=== PATIENT | female | born 1950 | race Caucasian/White ===

== ENCOUNTER 2016-04-11 10:19 | Emergency (ER) | payer MEDICARE ==
[2016-01-30 10:49] VITALS: BMI 22.7
[~2016-04-11 10:19] MED LIST: HALDOL5 MG/ML IM; MEDROL DOSE PACK4 MG PO; MOBIC7.5 MG PO; MULTIPLE VITAMI1 TA1 PO; POTASSIUM CHLO10 ME1 PO; PREDNISONE20 MG PO; PROTONIX40 MG PO; ROBAXIN-750750 MG PO; ULTRAM50 MG PO
[2016-04-11 10:59] LABS: BASOPHILS 0.5 % (0.0-2.0); EOSINOPHILS 1.4 % (0-7); HEMATOCRIT 39.2 % (36.0-48.0); HEMOGLOBIN 12.4 g/dL (12-16); IMMATURE GRANULOCYTES 0.2 % (0-5); LYMPHOCYTES 18.9 % (15-50); MCH 27.4 pg (26.0-34.0); MCHC 31.6 g/dL (31.0-37.0); MCV 86.5 fL (80.0-100.0); MEAN PLATELET VOLUME 9.3 fL (7.4-10.4); MONOCYTES 5.9 % (2-11); NEUTROPHILS 73.1 % (40-80); RBC 4.53 10x6/uL (4.00-5.40); RDW 16.6 % (11.5-14.5); WBC 5.6 10x3/uL (4.8-10.8)
[2016-04-11 11:04] LABS: PLATELET COUNT 191 10x3/uL (130-400)
[2016-04-11 11:17] LABS: APTT 32.2 SECONDS (22.8-39.4); INR 1.06 (0.85-1.17); PROTIME 13.6 SECONDS (11.6-15.0)
[2016-04-11 11:26] LABS: ALBUMIN 3.8 g/dL (3.4-5.0); ALKALINE PHOSPHATASE 461 U/L (46-116); ALT (SGPT) 28 U/L (10-68); BILIRUBIN - TOTAL 0.25 mg/dL (0.2-1.3); CALC OSMOLALITY 278 mosm/kg (275-300); CALCIUM 8.8 mg/dL (8.5-10.1); CARBON DIOXIDE 28.4 mmol/L (21.0-32.0); CHLORIDE - SERUM 104 mmol/L (98-107); CREATININE - SERUM 0.6 mg/dL (0.6-1.3); GLUCOSE 93 mg/dL (74-106); POTASSIUM - SERUM 4.6 mmol/L (3.5-5.1); PROTEIN - SERUM 7.4 g/dL (6.4-8.2); SODIUM 139 mmol/L (136-145); UREA NITROGEN 15 mg/dL (7-18); eGFR NON AFRICAN AMERICAN > 90 mL/min (90-120)
== END 2016-04-11 14:00 | disposition home or self-care (01) ==
LOC: D.ER 10:19
PROVIDERS: Nurse Practitioner Family
DX: C76.51 Malignant neoplasm of right lower limb (principal); C79.51 Secondary malignant neoplasm of bone

== ENCOUNTER 2016-07-30 06:50 | Day surgery (SDC) | payer MEDICARE ==
[~2016-07-30] VITALS: Ht 157.5 cm; Wt 54.4 kg
--- NOTE | ~2016-07-30 | OP ---
PATIENT NAME: JIMBO WINN MEDICAL RECORD: [id number] :52 LOCATION:D.OPS ADMISSION DATE: SURGEON: RENAN VILLEGAS MD DATE OF OPERATION: 07/30/2016 PREOPERATIVE DIAGNOSES: 1. Metastatic breast cancer. 2. Bone cancer, metastatic from the breast. POSTOPERATIVE DIAGNOSES: 1. Metastatic breast cancer. 2. Bone cancer, metastatic from the breast. PROCEDURE: Left subclavian vein PowerPort placement with fluoroscopic interpretation. SURGEON: Renan Villegas MD REPORT OF PROCEDURE: The patient's left chest was prepped and draped in sterile fashion. A needle was used to cannulate the left subclavian vein. The guidewire was advanced with ease. Fluoro was used to note that the wire was in good position in the venous system. A subcutaneous pouch was then formed on the left superior and lateral chest overlying the pectoral fascia. The port was then sutured to the pectoral fascia using interrupted 2-0 Prolenes and the catheter was tunneled between this pouch and the wire exit site. The catheter was then cut with a beveled tip at 25 cm. The dilator trocar device was placed over the wire and the wire and dilator were removed. The catheter tip was advanced through the trocar with ease and the trocar was removed. The catheter resting in good position at the right atrial superior vena caval junction. The catheter aspirated nonpulsatile dark blood and flushed easily with heparinized saline. We then irrigated out the wound and then reapproximated the subcutaneous tissues with interrupted 3-0 Vicryls. The skin was then closed with running subcutaneous 5-0 Monocryl and dressed appropriately. A total of 5 mL of 0.25% Marcaine with epinephrine was infused into the surrounding tissues. COMPLICATIONS: None. CONDITION: Stable. ANESTHESIA: General endotracheal and local. BLOOD LOSS: Minimal. TRANSINT:[id number] Voice Confirmation ID: [id number] DOCUMENT ID: [id number] RENAN VILLEGAS MD CC: OLIVIA RAAYA MD and KIERSTEN HERNANDEZ MD [id number] DICTATION DATE: 07/30/16 0937 GALLERY OR MUSEUM CURATOR: 07/30/162008 [facility] 07/30/16 [place] [address]
[~2016-07-30 06:50] MED LIST changes: +CYCLOBENZAPRINE10 MG PO; +FEMARA2.5 MG PO; +IBRANCE PO
[2016-07-30] MEDS ORDERED: PERCOCET 5-3251 TAB PO ×2 (07:31→09:32)
[2016-07-30 07:33] VITALS: BP 127/91; Ht 157.5 cm; Wt 54.4 kg
[2016-07-30 07:50] LABS: BASOPHILS 1.8 % (0-2); EOSINOPHILS 6.5 % (0-7); HEMATOCRIT 37.5 % (36.0-48.0); HEMOGLOBIN 12.3 g/dL (12-16); LYMPHOCYTES 46.9 % (15-50); MCH 33.5 pg (26.0-34.0); MCHC 32.8 g/dL (31.0-37.0); MCV 102.2 fL (80.0-100.0); MEAN PLATELET VOLUME 9.3 fL (7.4-10.4); MONOCYTES 4.5 % (2-11); NEUTROPHILS 40.3 % (40-80); RBC 3.67 10x6/uL (4.00-5.40); RDW 20.7 % (11.5-14.5)
[2016-07-30 07:54] LABS: PLATELET COUNT 326 10x3/uL (130-400)
[2016-07-30 07:58] LABS: APTT 29.7 SECONDS (22.8-39.4); INR 0.97 (0.85-1.17); PROTIME 12.7 SECONDS (11.6-15.0)
--- NOTE | 2016-07-30 11:44 | NUR ---
1144--IV DC'D, PT UP TO DRESS. KAMLA RN
--- NOTE | 2016-07-30 16:38 | NUR ---
1205--DISCHARGE INSTRUCTIONS GIVEN, PT VERBALIZES UNDERSTANDING. PT OFF UNIT VIA NAVJOT. KAMLA CARLSON
== END 2016-07-30 12:05 | disposition home or self-care (01) ==
LOC: D.OPS 06:50 → D.PAN 07:30 → D.OPS 12:05
PROVIDERS: Anesthesiology
DX: C50.919 Malignant neoplasm of unspecified site of unspecified female breast (principal); C79.51 Secondary malignant neoplasm of bone; Z01.812 Encounter for preprocedural laboratory examination

== ENCOUNTER → 2016-08-05 09:54 | Outpatient (CLI) | payer MEDICARE ==
[2016-07-30 07:33] VITALS: BMI 22.0
[~2016-08-05 09:54] MED LIST changes: +PERCOCET 5-3251 TAB PO
== END | disposition home or self-care (01) ==
LOC: D.NM 07-09 09:45
DX: C50.912 Malignant neoplasm of unspecified site of left female breast (principal)

== ENCOUNTER → 2017-05-11 10:49 | Outpatient (CLI) | payer OTHER, MEDICARE ==
[2016-07-30 07:33] VITALS: BMI 22.0
== END | disposition home or self-care (01) ==
LOC: D.NM 04-28 08:15
DX: Z85.3 Personal history of malignant neoplasm of breast (principal)

== ENCOUNTER 2017-10-14 17:58 | Emergency (ER) | payer OTHER, MEDICARE ==
[~2017-10-14] VITALS: Ht 157.5 cm; Wt 55.0 kg
[2017-10-14 18:12] VITALS: Ht 157.5 cm; Wt 55.0 kg
[2017-10-14] MEDS ORDERED: XGEVA (18:15)
[2017-10-14 18:40] LABS: BASOPHILS 0.6 % (0-2); EOSINOPHILS 4.6 % (0-7); HEMATOCRIT 39.4 % (36.0-48.0); HEMOGLOBIN 12.7 g/dL (12-16); IMMATURE GRANULOCYTES 0.1 % (0-5); LYMPHOCYTES 24.9 % (15-50); MCH 29.4 pg (26.0-34.0); MCHC 32.2 g/dL (31.0-37.0); MCV 91.2 fL (80.0-100.0); MEAN PLATELET VOLUME 9.4 fL (7.4-10.4); MONOCYTES 5.3 % (2-11); NEUTROPHILS 64.5 % (40-80); RBC 4.32 10x6/uL (4.00-5.40); RDW 15.3 % (11.5-14.5); WBC 8.2 10x3/uL (4.8-10.8)
[2017-10-14 18:43] LABS: PLATELET COUNT 220 10x3/uL (130-400)
[2017-10-14 18:58] LABS: APPEARANCE CLEAR (CLEAR); BACTERIA FEW /hpf (NONE SEEN); BILIRUBIN NEGATIVE (NEGATIVE); COLOR YELLOW (YELLOW); GLUCOSE NEGATIVE (NEGATIVE); KETONE NEGATIVE (NEGATIVE); NITRITE NEGATIVE (NEGATIVE); PROTEIN NEGATIVE (NEGATIVE); UROBILINOGEN NORMAL (NORMAL); WHITE CELLS - URINE 0-5 /hpf (0-5)
[2017-10-14 18:58] LABS: ALBUMIN 3.7 g/dL (3.4-5.0); ANION GAP 12.6 mmol/L (8-16); BILIRUBIN - TOTAL 0.45 mg/dL (0.2-1.3); CALCIUM 8.5 mg/dL (8.5-10.1); CARBON DIOXIDE 24.8 mmol/L (21.0-32.0); CREATININE - SERUM 0.9 mg/dL (0.6-1.3); POTASSIUM - SERUM 4.4 mmol/L (3.5-5.1); PROTEIN - SERUM 7.1 g/dL (6.4-8.2)
[2017-10-14 23:34] VITALS: BP 122/86
== END 2017-10-14 23:34 | disposition home or self-care (01) ==
LOC: D.ER 17:58
PROVIDERS: Family Medicine
DX: M79.661 Pain in right lower leg (principal); R60.9 Edema, unspecified; Z87.311 Personal history of (healed) other pathological fracture; C50.919 Malignant neoplasm of unspecified site of unspecified female breast; C79.51 Secondary malignant neoplasm of bone

== ENCOUNTER → 2017-10-26 13:38 | Outpatient (CLI) | payer OTHER, MEDICARE ==
[2017-10-14 18:12] VITALS: BMI 22.2
[~2017-10-26 13:38] MED LIST changes: +XGEVA
== END | disposition home or self-care (01) ==
LOC: D.CT 13:38
DX: C50.912 Malignant neoplasm of unspecified site of left female breast (principal); C79.51 Secondary malignant neoplasm of bone

== ENCOUNTER 2017-11-09 15:55 | Inpatient (IN) | payer OTHER, MEDICAID ==
[~2017-11-09] VITALS: Ht 157.5 cm; Wt 55.0 kg
[2017-11-09 16:35] LABS: BASOPHILS 0.4 % (0-2); EOSINOPHILS 2.9 % (0-7); HEMATOCRIT 41.3 % (36.0-48.0); HEMOGLOBIN 13.7 g/dL (12-16); IMMATURE GRANULOCYTES 0.1 % (0-5); LYMPHOCYTES 17.9 % (15-50); MCH 29.5 pg (26.0-34.0); MCHC 33.2 g/dL (31.0-37.0); MEAN PLATELET VOLUME 9.5 fL (7.4-10.4); MONOCYTES 6.4 % (2-11); NEUTROPHILS 72.3 % (40-80); PLATELET COUNT 232 10x3/uL (130-400); RBC 4.64 10x6/uL (4.00-5.40); RDW 14.9 % (11.5-14.5); WBC 7.2 10x3/uL (4.8-10.8)
[2017-11-09 16:53] LABS: ALBUMIN 3.4 g/dL (3.4-5.0); ALKALINE PHOSPHATASE 82 U/L (46-116); ALT (SGPT) 32 U/L (10-68); BILIRUBIN - TOTAL 0.52 mg/dL (0.2-1.3); CALC OSMOLALITY 285 mosm/kg (275-300); CALCIUM 8.3 mg/dL (8.5-10.1); CARBON DIOXIDE 25.4 mmol/L (21.0-32.0); CHLORIDE - SERUM 106 mmol/L (98-107); GLUCOSE 135 mg/dL (74-106); POTASSIUM - SERUM 4.1 mmol/L (3.5-5.1); PROTEIN - SERUM 6.9 g/dL (6.4-8.2); SODIUM 139 mmol/L (136-145); UREA NITROGEN 29 mg/dL (7-18); eGFR NON AFRICAN AMERICAN 59 mL/min (90-120)
[2017-11-09 16:57] LABS: APTT 30.7 SECONDS (22.8-39.4); INR 1.28 (0.85-1.17); PROTIME 15.5 SECONDS (11.6-15.0)
[2017-11-09 17:04] LABS: CKMB 2.5 U/L (0.0-3.6); CREATINE KINASE 107 UL (21-215); PRO BNP 10500 pg/mL (0-125); TROPONIN-I < 0.017 ng/mL (0.000-0.060)
[2017-11-09] MEDS ORDERED: PROLIA INJ 660 MG/M1 IJ (17:22)
[2017-11-09] MEDS ORDERED: ALDACTONE25 MG PO (17:23)
[2017-11-09 17:31] VITALS: BP 119/81
[2017-11-09 17:49] VITALS: BP 116/83
[2017-11-09 22:05] VITALS: BP 118/76
[2017-11-10] VITALS (7 sets, daily range): BP systolic 100–118; BP diastolic 61–76; BMI 24.5
[2017-11-10 15:02] LABS: MAGNESIUM - SERUM 2.2 mg/dL (1.8-2.4); T4 THYROXIN - FREE 1.44 ng/dL (0.76-1.46); THYROID STIMULATING HORMONE 2.38 uIU/mL (0.36-3.74)
[2017-11-11] VITALS (16 sets, daily range): BP systolic 85–144; BP diastolic 30–104; Ht 157.5 cm; Wt 55.0 kg
[2017-11-11 08:42] LABS: BASOPHILS 0.1 % (0-2); EOSINOPHILS 0.1 % (0-7); HEMATOCRIT 45.4 % (36.0-48.0); HEMOGLOBIN 14.4 g/dL (12-16); IMMATURE GRANULOCYTES 0.4 % (0-5); LYMPHOCYTES 13.7 % (15-50); MCH 29.1 pg (26.0-34.0); MCHC 31.7 g/dL (31.0-37.0); MEAN PLATELET VOLUME 9.9 fL (7.4-10.4); MONOCYTES 10.2 % (2-11); NEUTROPHILS 75.5 % (40-80); RBC 4.95 10x6/uL (4.00-5.40); RDW 15.3 % (11.5-14.5)
[2017-11-11 08:50] LABS: WBC 9.3 10x3/uL (4.8-10.8)
[2017-11-11 08:51] LABS: MCV 91.7 fL (80.0-100.0); PLATELET COUNT 133 10x3/uL (130-400)
[2017-11-11 09:14] LABS: CHLORIDE - SERUM 98 mmol/L (98-107); CKMB 5.4 U/L (0.0-3.6); SODIUM 130 mmol/L (136-145); UREA NITROGEN 34 mg/dL (7-18)
[2017-11-11 09:28] LABS: CALC OSMOLALITY 266 mosm/kg (275-300); CARBON DIOXIDE 12.7 mmol/L (21.0-32.0); CREATINE KINASE 307 UL (21-215); CREATININE - SERUM 2.3 mg/dL (0.6-1.3); eGFR NON AFRICAN AMERICAN 22 mL/min (90-120)
[2017-11-11 09:30] LABS: GLUCOSE 55 mg/dL (74-106); POTASSIUM - SERUM 7.2 mmol/L (3.5-5.1); TROPONIN-I 0.133 ng/mL (0.000-0.060)
[2017-11-12] VITALS (24 sets, daily range): BP systolic 104–159; BP diastolic 55–99
[2017-11-12 04:57] LABS: BASOPHILS 0 % (0-2); EOSINOPHILS 0 % (0-7); HEMATOCRIT 39.6 % (36.0-48.0); HEMOGLOBIN 13.3 g/dL (12-16); IMMATURE GRANULOCYTES 0.5 % (0-5); LYMPHOCYTES 5.1 % (15-50); MCHC 33.6 g/dL (31.0-37.0); MEAN PLATELET VOLUME 10.3 fL (7.4-10.4); MONOCYTES 4.5 % (2-11); NEUTROPHILS 89.9 % (40-80); PLATELET COUNT 117 10x3/uL (130-400); RBC 4.59 10x6/uL (4.00-5.40); RDW 14.4 % (11.5-14.5)
[2017-11-12 05:01] LABS: MCV 86.3 fL (80.0-100.0); WBC 19.7 10x3/uL (4.8-10.8)
[2017-11-12 05:03] LABS: CALCIUM 7.5 mg/dL (8.5-10.1); CREATININE - SERUM 1.7 mg/dL (0.6-1.3)
[2017-11-12 05:04] LABS: ANION GAP 11.9 mmol/L (8-16); CARBON DIOXIDE 29.7 mmol/L (21.0-32.0); POTASSIUM - SERUM 2.6 mmol/L (3.5-5.1)
[2017-11-13] VITALS (14 sets, daily range): BP systolic 116–167; BP diastolic 58–87
[2017-11-13 06:18] LABS: ANION GAP 11.1 mmol/L (8-16); CALCIUM 7.8 mg/dL (8.5-10.1); CARBON DIOXIDE 31.7 mmol/L (21.0-32.0); POTASSIUM - SERUM 3.8 mmol/L (3.5-5.1)
[2017-11-13 06:24] LABS: BASOPHILS 0.2 % (0-2); EOSINOPHILS 0.9 % (0-7); HEMATOCRIT 43.5 % (36.0-48.0); HEMOGLOBIN 14.7 g/dL (12-16); IMMATURE GRANULOCYTES 0.3 % (0-5); MCH 29.3 pg (26.0-34.0); MCHC 33.8 g/dL (31.0-37.0); MCV 86.8 fL (80.0-100.0); MEAN PLATELET VOLUME 9.7 fL (7.4-10.4); MONOCYTES 5.4 % (2-11); NEUTROPHILS 80.2 % (40-80); PLATELET COUNT 100 10x3/uL (130-400); RBC 5.01 10x6/uL (4.00-5.40); WBC 11.1 10x3/uL (4.8-10.8)
[2017-11-13 06:26] LABS: CREATININE - SERUM 1.2 mg/dL (0.6-1.3)
[2017-11-14 04:03] LABS: BASOPHILS 0.2 % (0-2); EOSINOPHILS 1.3 % (0-7); HEMATOCRIT 46.8 % (36.0-48.0); HEMOGLOBIN 15.8 g/dL (12-16); IMMATURE GRANULOCYTES 0.2 % (0-5); LYMPHOCYTES 22.2 % (15-50); MCH 29.3 pg (26.0-34.0); MCHC 33.8 g/dL (31.0-37.0); MCV 86.8 fL (80.0-100.0); MEAN PLATELET VOLUME 9.9 fL (7.4-10.4); NEUTROPHILS 68.1 % (40-80); PLATELET COUNT 117 10x3/uL (130-400); RBC 5.39 10x6/uL (4.00-5.40); RDW 14.7 % (11.5-14.5); WBC 9.9 10x3/uL (4.8-10.8)
[2017-11-14 04:13] LABS: ANION GAP 10.1 mmol/L (8-16); CALCIUM 8.3 mg/dL (8.5-10.1); CARBON DIOXIDE 32.9 mmol/L (21.0-32.0)
[2017-11-14 07:00] VITALS: BP 110/68
[2017-11-14 11:01] VITALS: BP 147/82
[2017-11-14 12:45] VITALS: BP 147/91
[2017-11-14 15:20] VITALS: BP 100/65
[2017-11-14 22:06] VITALS: BP 97/52
[2017-11-15 00:47] VITALS: BP 125/71
[2017-11-15 05:23] VITALS: BP 119/74
[2017-11-15 06:33] LABS: ANION GAP 13.1 mmol/L (8-16); CALCIUM 8.4 mg/dL (8.5-10.1); CARBON DIOXIDE 30.6 mmol/L (21.0-32.0); CREATININE - SERUM 0.9 mg/dL (0.6-1.3); POTASSIUM - SERUM 3.7 mmol/L (3.5-5.1)
[2017-11-15 06:38] LABS: BASOPHILS 0.6 % (0-2); EOSINOPHILS 8.2 % (0-7); HEMATOCRIT 48.2 % (36.0-48.0); HEMOGLOBIN 16.1 g/dL (12-16); IMMATURE GRANULOCYTES 0.2 % (0-5); LYMPHOCYTES 25.4 % (15-50); MCH 29.1 pg (26.0-34.0); MCHC 33.4 g/dL (31.0-37.0); MEAN PLATELET VOLUME 10.9 fL (7.4-10.4); MONOCYTES 10.6 % (2-11); RBC 5.54 10x6/uL (4.00-5.40); RDW 14.7 % (11.5-14.5); WBC 9.8 10x3/uL (4.8-10.8)
[2017-11-15 06:43] LABS: PLATELET COUNT 147 10x3/uL (130-400)
[2017-11-15 08:23] VITALS: BP 122/80
[2017-11-15 12:00] VITALS: BP 116/73
[2017-11-15 15:54] VITALS: BP 119/70
[2017-11-15 22:50] VITALS: BP 100/66
[2017-11-16 01:58] VITALS: BP 110/66
[2017-11-16 05:09] LABS: BASOPHILS 0.4 % (0-2); EOSINOPHILS 6.2 % (0-7); HEMATOCRIT 44.8 % (36.0-48.0); IMMATURE GRANULOCYTES 0.4 % (0-5); LYMPHOCYTES 30.6 % (15-50); MCH 29.1 pg (26.0-34.0); MCHC 33.5 g/dL (31.0-37.0); MEAN PLATELET VOLUME 10.1 fL (7.4-10.4); MONOCYTES 11.3 % (2-11); NEUTROPHILS 51.1 % (40-80); PLATELET COUNT 134 10x3/uL (130-400); RBC 5.15 10x6/uL (4.00-5.40); RDW 14.6 % (11.5-14.5); WBC 9.9 10x3/uL (4.8-10.8)
[2017-11-16 05:53] LABS: ANION GAP 14.4 mmol/L (8-16); BILIRUBIN - TOTAL 0.69 mg/dL (0.2-1.3); CALCIUM 8.9 mg/dL (8.5-10.1); CARBON DIOXIDE 29.8 mmol/L (21.0-32.0); POTASSIUM - SERUM 3.2 mmol/L (3.5-5.1); PROTEIN - SERUM 6.5 g/dL (6.4-8.2)
[2017-11-16 05:54] LABS: CREATININE - SERUM 1.3 mg/dL (0.6-1.3)
[2017-11-16 06:15] VITALS: BP 121/56
[2017-11-16 09:39] VITALS: BP 116/70
[2017-11-16 12:34] VITALS: BP 129/87
[2017-11-16 16:12] VITALS: BP 113/78
[2017-11-16 20:00] VITALS: BP 121/95
[2017-11-17 04:00] VITALS: BP 120/90
[2017-11-17 09:17] VITALS: BP 143/89
[2017-11-17 11:33] LABS: BASOPHILS 0.3 % (0-2); EOSINOPHILS 2.2 % (0-7); HEMATOCRIT 43.1 % (36.0-48.0); HEMOGLOBIN 14.6 g/dL (12-16); IMMATURE GRANULOCYTES 0.5 % (0-5); LYMPHOCYTES 23.6 % (15-50); MCH 29.2 pg (26.0-34.0); MCHC 33.9 g/dL (31.0-37.0); MCV 86.2 fL (80.0-100.0); MEAN PLATELET VOLUME 9.9 fL (7.4-10.4); MONOCYTES 13.8 % (2-11); NEUTROPHILS 59.6 % (40-80); PLATELET COUNT 141 10x3/uL (130-400); RDW 14.8 % (11.5-14.5); WBC 11.1 10x3/uL (4.8-10.8)
[2017-11-17 11:38] VITALS: BP 115/76
[2017-11-17 11:56] LABS: ALBUMIN 3.1 g/dL (3.4-5.0); ANION GAP 8.6 mmol/L (8-16); BILIRUBIN - TOTAL 0.64 mg/dL (0.2-1.3); CALCIUM 9.1 mg/dL (8.5-10.1); CARBON DIOXIDE 31.7 mmol/L (21.0-32.0); CREATININE - SERUM 1.1 mg/dL (0.6-1.3); POTASSIUM - SERUM 4.3 mmol/L (3.5-5.1)
[2017-11-17] MEDS ORDERED: LISINOPRIL2.5 MG PO (13:55)
[2017-11-17] MEDS ORDERED: COREG6.25 MG PO (13:55)
[2017-11-17] MEDS ORDERED: CARDIZEM CD180 MG PO (13:56)
[2017-11-17] MEDS ORDERED: FLORAJEN3 CAPS460 MG PO (13:57)
[2017-11-17] MEDS ORDERED: MIRALAX17 GM PO (14:01)
[2017-11-17] MEDS ORDERED: DULCOLAX5 MG PO (14:01)
== END 2017-11-17 17:13 | disposition home or self-care (01) | DRG 308 ==
LOC: D.ER 15:55 → D.M2 18:53 → OBSVTIME 18:53 → D.M2 11-11 08:18 → D.ICU 11-11 08:57 → D.M2 11-11 15:52
PROVIDERS: Emergency Medicine; Family Medicine; Internal Medicine Nephrology
DX: I47.1 Supraventricular tachycardia (principal); I50.23 Acute on chronic systolic (congestive) heart failure; J96.01 Acute respiratory failure with hypoxia; N17.9 Acute kidney failure, unspecified; L03.115 Cellulitis of right lower limb; I11.0 Hypertensive heart disease with heart failure; E78.5 Hyperlipidemia, unspecified; E87.6 Hypokalemia; K59.00 Constipation, unspecified; I08.1 Rheumatic disorders of both mitral and tricuspid valves; L27.0 Generalized skin eruption due to drugs and medicaments taken internally; T36.8X5A Adverse effect of other systemic antibiotics, initial encounter; F25.9 Schizoaffective disorder, unspecified; D69.6 Thrombocytopenia, unspecified; M19.90 Unspecified osteoarthritis, unspecified site; F31.9 Bipolar disorder, unspecified; Z85.3 Personal history of malignant neoplasm of breast

== ENCOUNTER 2017-11-19 16:46 | Inpatient (IN) | payer OTHER, MEDICAID ==
[~2017-11-19] VITALS: Ht 157.5 cm; Wt 55.3 kg
--- NOTE | ~2017-11-19 | PN ---
PATIENT:JIMBO WINN MEDICAL RECORD: [id number] LOCATION:MAGI Aguilar112 ADMISSION DATE: 11/19/17 PROGRESS NOTE DATE OF SERVICE: 11/22/2017 SUBJECTIVE: The patient's case was discussed with staff. She has no new complaint. OBJECTIVE: The patient is delusional and disorganized. She has not been aggressive. She is refusing to take the Haldol Decanoate shot saying that she does not need Haldol, but she took an oral dose today knowing it was Haldol. She has a very long history of medication noncompliance and I think that it is important for her to be on a long-acting injectable medication. ASSESSMENT: No change in diagnoses. PLAN: The patient will be offered Haldol Decanoate again tomorrow and I will speak with her at the time it is being offered so that we can convince her that it is in her best interest. TRANSINT:[id number] Voice Confirmation ID: [id number] DOCUMENT ID: [id number] JACLYN MONTES MD at 0827 CC: [id number] DICTATION DATE: 11/22/17 1412 VALUE STREAM COACH: 11/22/17 1423 ADM IN [id number] [place] [address]
--- NOTE | ~2017-11-19 | PN ---
PATIENT:JIMBO WINN MEDICAL RECORD: [id number] LOCATION:NAHUN[facility]aryn Aguilar112 ADMISSION DATE: 11/19/17 PROGRESS NOTE DATE OF SERVICE: 11/30/2017 SUBJECTIVE: The patient's case was discussed with staff. She has no new complaint. OBJECTIVE: The patient continues to be disorganized and delusional, but she is not aggressive. She generally follows instructions fairly well and certainly she needs a large amount of cueing and assistance. ASSESSMENT: No change in diagnoses. PLAN: Current medicines and therapies have been reviewed. I am going to order another Depakote level on her for tomorrow. I think she is probably close to being appropriate for discharge. I do not want to discharge her with an elevated Depakote level. TRANSINT:[id number] Voice Confirmation ID: [id number] DOCUMENT ID: [id number] JACLYN MONTES MD at 0951 CC: [id number] DICTATION DATE: 11/30/17 09 MACHINE PULLER AND LASTER: 11/30/17 1153 ADM IN [facility] [address] [place] [address]
--- NOTE | ~2017-11-19 | PN ---
PATIENT:JIMBO WINN MEDICAL RECORD: [id number] LOCATION:[facility]ilar112 ADMISSION DATE: 11/19/17 PROGRESS NOTE DATE OF SERVICE: 12/02/2017 SUBJECTIVE: The patient's case was discussed with staff. She has no new complaint. OBJECTIVE: The patient is disorganized and delusional. She is regularly observed carrying on conversations, sometimes angry conversations with persons not present. She is probably not as disorganized as she has been, but she is still very difficult to talk to. When I asked her today how she was doing, she went on a poorly connected rant about how she is thankful to God because he heats the water in the ground and then it bubbles up into the earth and then she continued to jump from topic to topic. She has not been aggressive and she denies that she wants to hurt herself or others. She is sleeping and eating reasonably well. She does perform her ADLs, although she has to be prompted and cued to do so. ASSESSMENT: No change in diagnoses. PLAN: If this level of improvement continues, I anticipate she can be transitioned to the assisted living center next week. She will have a fair amount of supervision there and the end point of this hospitalization is not that she be completely free from psychotic symptoms, but rather that she have the psychotic symptoms improved sufficiently such that she could be reasonably managed and supervised in a less restrictive environment. TRANSINT:[id number] Voice Confirmation ID: [id number] DOCUMENT ID: [id number] JACLYN MONTES MD at 0926 CC: [id number] DICTATION DATE: 12/02/17 1034 BRANDING MACHINE OPERATOR: 12/02/17 1048 ADM IN [facility] [address] [id number]
--- NOTE | ~2017-11-19 | PN ---
PATIENT:JIMBO WINN MEDICAL RECORD: [id number] LOCATION:[facility] Aguilar112 ADMISSION DATE: 11/19/17 PROGRESS NOTE DATE OF SERVICE: 12/06/2017 SUBJECTIVE: The patient's case was discussed with staff. She has no new complaint. OBJECTIVE: The patient is oriented to person, place, time and situation. Her mood is euthymic. Thought processes are disorganized and filled with delusional content. She has no thoughts of harming herself or others. ASSESSMENT: No change in diagnoses. PLAN: There was a problem with the patient's transportation yesterday. She will be discharged today. Followup will be with her primary care physician and outpatient psychiatrist. She should continue to take the long-acting injectable Haldol and should continue to take the oral Haldol until it is reasonably certain that she has reached a steady state blood level on the injectable and/or it is reasonably certain that she has reached her baseline level of improvement. She is not directly dangerous, but does need supervision. TRANSINT:[id number] Voice Confirmation ID: [id number] DOCUMENT ID: [id number] JACLYN MONTES MD at 0922 CC: [id number] DICTATION DATE: 12/06/17 1235 DIGITAL ASSOCIATE: 12/06/17 1240 DIS IN 12/06/17 [id number] [place] [address]
--- NOTE | ~2017-11-19 | PN ---
PATIENT:JIMBO WINN MEDICAL RECORD: [id number] LOCATION:[facility]I [facility]ilar112 ADMISSION DATE: 11/19/17 PROGRESS NOTE DATE OF SERVICE: 12/01/2017 SUBJECTIVE: The patient's case was discussed with staff. She has no new complaint. OBJECTIVE: The patient is in good behavioral control with limited insight about her condition. She generally tolerates her medicines well. ASSESSMENT: No change in diagnoses. PLAN: The patient still is delusional, but she is calmer. She had a Depakote level of 74 yesterday. I think she is going to be stabilized at this lower dose of Depakote. I am going to change it so that it is given twice a day instead of 3 times a day just for ease of administration. The long-acting Haldol injection has not had an opportunity to become effective and I am going to continue the oral Haldol until she has had at least a couple doses of the long-acting injection. TRANSINT:[id number] Voice Confirmation ID: [id number] DOCUMENT ID: [id number] JACLYN MONTES MD at 1024 CC: [id number] DICTATION DATE: 12/01/17 1008 SHIPPING ROOM HELPER: 12/01/17 1124 ADM IN [address] [place] [address]
--- NOTE | ~2017-11-19 | PN ---
PATIENT:JIMBO WINN MEDICAL RECORD: [id number] LOCATION:NAHUNSharyn Aguilar112 ADMISSION DATE: 11/19/17 PROGRESS NOTE DATE OF SERVICE: 11/26/2017 SUBJECTIVE: The patient's case was discussed with staff. She has no new complaint. OBJECTIVE: The patient denies intent to harm herself or others. She is still delusional and was standing at the window carrying on a conversation with someone not present. ASSESSMENT: No change in diagnoses. PLAN: Current medicines have been reviewed and will be maintained. I am going to start her on Haldol Decanoate at 100 mg every month. Her daughter says that she was nicely stabilized on this, and she has already had a 25 mg Haldol Decanoate shot as an initial injection, but the other 100 mg will now follow. TRANSINT:[id number] Voice Confirmation ID: [id number] DOCUMENT ID: [id number] JACLYN MONTES MD at 1107 CC: [id number] DICTATION DATE: 11/26/17 1018 BASEBALL GLOVE SHAPER: 11/26/17 1223 ADM IN [facility] [address] [place] [address]
--- NOTE | ~2017-11-19 | PN ---
PATIENT:JIMBO WINN MEDICAL RECORD: [id number] LOCATION:MAGI Aguilar112 ADMISSION DATE: 11/19/17 PROGRESS NOTE DATE OF SERVICE: 12/05/2017 SUBJECTIVE: The patient's case was discussed with staff. She has no new complaint. OBJECTIVE: The patient denies intent to harm herself or others. She generally tolerates her medicines well. She is disorganized and delusional, but in a way that needs supervision and does not represent direct risk to herself or others. She has been accepted to an assisted living center that has supervised care. She will be transitioned there today. TRANSINT:[id number] Voice Confirmation ID: [id number] DOCUMENT ID: [id number] JACLYN MONTES MD at 1223 CC: [id number] DICTATION DATE: 12/05/17 1428 FAMILY MEDIATOR: 12/05/17 1531 ADM IN [facility] [address] [place] [address]
--- NOTE | ~2017-11-19 | PN ---
PATIENT:JIMBO WINN MEDICAL RECORD: [id number] LOCATION:MAGI Aguilar112 ADMISSION DATE: 11/19/17 PROGRESS NOTE DATE OF SERVICE: 11/21/2017 SUBJECTIVE: The patient's case was discussed with staff. She has no new complaint. OBJECTIVE: The patient is disorganized and delusional. Her daughter is able to give us some very useful history. The patient was diagnosed with schizophrenia at the age of 22. She has never been gainfully employed. She has a long history of medication noncompliance and does best when given a long-acting injectable. Indeed today, she refused her medicines. ASSESSMENT: No change in diagnoses. PLAN: Supportive and educational interventions were made. Long-term prognosis is guarded. I am going to order a Haldol decanoate shot. TRANSINT:[id number] Voice Confirmation ID: [id number] DOCUMENT ID: [id number] JACLYN MONTES MD at 1354 CC: [id number] DICTATION DATE: 11/21/17 1437 OAKES MACHINE OPERATOR: 11/21/17 1452 ADM IN [facility] [address] [place] [address]
--- NOTE | ~2017-11-19 | PN ---
PATIENT:JIMBO WINN MEDICAL RECORD: [id number] LOCATION:[facility]ilar112 ADMISSION DATE: 11/19/17 PROGRESS NOTE DATE OF SERVICE: 11/25/2017 SUBJECTIVE: The patient's case was discussed with staff. She has no new complaint. OBJECTIVE: The patient denies intent to harm herself or others. She generally tolerates her medicines well. ASSESSMENT: No change in diagnoses. PLAN: Supportive and educational interventions were made. Long-term prognosis is guarded. TRANSINT:[id number] Voice Confirmation ID: [id number] DOCUMENT ID: [id number] JACLYN MONTES MD at 1007 CC: [id number] DICTATION DATE: 11/25/17 1627 PROFESSIONAL NURSE: 11/25/17 1630 ADM IN [id number] [place] [address]
--- NOTE | ~2017-11-19 | PN ---
PATIENT:JIMBO WINN MEDICAL RECORD: [id number] LOCATION:MAGI Aguilar112 ADMISSION DATE: 11/19/17 PROGRESS NOTE DATE OF SERVICE: 11/28/2017 SUBJECTIVE: The patient's case was discussed with staff. She has no new complaint. OBJECTIVE: The patient denies intent to harm herself or others. She generally tolerates her medicines well. ASSESSMENT: No change in diagnoses. PLAN: The patient continues to be very delusional. She is talking about various bizarre dreams and believes they are real. She has received a second Haldol Decanoate injection this one is a 100 mg and will be repeated monthly. She is still taking the scheduled dose of Haldol on a daily basis. At this point, I think giving the medicine an opportunity to take effect is reasonable. She is taking the Depakote and the level is slightly above normal, so I am going to reduce the dose a little finger. TRANSINT:[id number] Voice Confirmation ID: [id number] DOCUMENT ID: [id number] JACLYN MONTES MD at 1348 CC: [id number] DICTATION DATE: 11/28/17 1118 LENS SHAPER GRINDER: 11/28/17 1521 ADM IN [address] [place] [address]
--- NOTE | ~2017-11-19 | PN ---
PATIENT:JIMBO WINN MEDICAL RECORD: [id number] LOCATION:MAGI [facility]ilar112 ADMISSION DATE: 11/19/17 PROGRESS NOTE DATE OF SERVICE: 12/04/2017 SUBJECTIVE: The patient's case was discussed with staff. She has no new complaint. OBJECTIVE: The patient denies intent to harm herself or others. She generally tolerates her medicines well. Eye contact is fair. ASSESSMENT: No change in diagnoses. PLAN: Supportive and educational interventions were made. The patient is still delusional, but she is not representing a direct danger to herself because of her psychotic symptoms. She does have an indirect danger in that she needs supervision and cueing, but that is going to be provided at [place]. I am going to discharge her to that facility tomorrow and follow up will be with her primary care physician and outpatient oncologist. TRANSINT:[id number] Voice Confirmation ID: [id number] DOCUMENT ID: [id number] JACLYN MONTES MD at 1417 CC: [id number] DICTATION DATE: 12/04/17 1102 FITNESS CENTRE MANAGER: 12/04/17 1228 ADM IN [id number] [place] [address]
--- NOTE | ~2017-11-19 | PN ---
PATIENT:JIMBO WINN MEDICAL RECORD: [id number] LOCATION:MAGI Aguilar112 ADMISSION DATE: 11/19/17 PROGRESS NOTE DATE OF SERVICE: 11/29/2017 SUBJECTIVE: The patient's case was discussed with staff. She has no new complaint. OBJECTIVE: The patient denies intent to harm herself or others. She does tolerate her medicines well. ASSESSMENT: No change in diagnoses. PLAN: Supportive and educational interventions were made. Long-term prognosis is guarded. The patient is still very delusional with grossly disorganized thought processes, but I am encouraged that she is taking her medication and that if given an opportunity it will help. I did not observe it, but just prior to coming to see her, the nurse told me that she was having a conversation with someone outside the window. When asked about this, she denied it. She has now been accepted to the [facility] facility, but in my view, she is not ready to be transitioned there. TRANSINT:[id number] Voice Confirmation ID: [id number] DOCUMENT ID: [id number] JACLYN MONETS MD at 0846 CC: [id number] DICTATION DATE: 11/29/17 1412 SWITCH OPERATOR: 11/29/17 1420 ADM IN [address] [place] [address]
--- NOTE | ~2017-11-19 | PN ---
PATIENT:JIMBO WINN MEDICAL RECORD: [id number] LOCATION:MAGI Aguilar112 ADMISSION DATE: 11/19/17 PROGRESS NOTE DATE OF SERVICE: 12/03/2017 SUBJECTIVE: The patient's case was discussed with staff. She has no new complaint. OBJECTIVE: The patient is still very disorganized. She is not behaviorally disruptive in some serious way, but she certainly needs close supervision. An example is that this morning I intended to discuss with her the fact that her daughter, who is her guardian, has found her placement at a local residential care facility. She will not be going back to her home. When I told her this, she points to her clavicle on the right and says that she needs a port to get chemotherapy and she is worried her hair is going to fall out. When asked if she understands what I am telling her, she says of course and then goes on to tell me about needing new slippers. This is typical of how nothing seems to flow or make sense when you talk with her. She is clearly grossly disorganized and psychotic. She is taking her medications and I am optimistic that she is going to show improvement. She certainly does need supervision and assistance even though she does most of her ADLs independently. She just needs cueing and reminding. She could not be trusted to cook, clean, or handle typical household affairs or issues on her own. ASSESSMENT: No change in diagnoses. PLAN: If arrangements are made for her to be transitioned to [facility] on Tuesday, I think I will go ahead and transition her out of the hospital. I am going to keep her on the same medicines. Given time, I think she will improve some. TRANSINT:[id number] Voice Confirmation ID: [id number] DOCUMENT ID: [id number] JACLYN MONTES MD at 1054 CC: [id number] DICTATION DATE: 12/03/17 0936 DIRECTOR WRITING: 12/03/17 1011 ADM IN [id number] [place] [address]
--- NOTE | ~2017-11-19 | PSY ---
PATIENT NAME:JIMBO WINN MEDICAL RECORD: [id number] : 52 LOCATION:MAGI Lauren1120 ADMISSION DATE: 11/19/17 ACCOUNT: [id number] PSYCHIATRIC EVALUATION DATE OF EVALUATION: 11/20/17 IDENTIFYING DATA: The patient is 67 years old and she is admitted to the hospital on a voluntary basis. CHIEF COMPLAINT: Psychosis. HISTORY OF PRESENT ILLNESS: The patient presented to the Emergency Room at [facility] yesterday. She was delusional, psychotic, rambling, and disorganized. She was evaluated there and transferred here. The patient had been hospitalized here on the medical floor recently. Apparently, in late October, she had an episode of supraventricular tachycardia and was admitted and treated for that. Unfortunately, right now, the patient is not able to give me anything in the way of useful information or history. She was rambling and disorganized, and the answers to questions are nonsensical. She clearly is not in touch with reality. PAST MEDICAL HISTORY: Most significant for widely metastatic breast cancer. The patient apparently has breast cancer and has had a left mastectomy. Unfortunately, the cancer has spread into the central nervous system. It is in the spine as well as the right hip. The patient also has a history of hypertension and hyperlipidemia. PAST PSYCHIATRIC HISTORY: Unknown, but it is known that the patient has history of schizoaffective disorder or some similar condition in the thinking disorder, mood disorder spectrum. She apparently has history of not taking medications, and according to secondhand information I found in the record, she was stabilized nicely on a Haldol Decanoate for 10 years. Apparently, she has not had that injection for some time. FAMILY HISTORY: Unknown. ALLERGIES: HYDROCODONE. CURRENT MEDICATIONS: Include Aldactone, Zestril, Cardizem, Coreg, Ultram, and Dulcolax. SOCIAL HISTORY: The patient is . She does have an adult daughter. I do not have longitudinal history regarding her social and occupational functioning or even substance abuse. The patient is not capable of giving me reliable information at this time. MENTAL STATUS EXAMINATION: The patient is awake, alert, and oriented to person only. Her mood is anxious. Her affect is constricted. Thought processes are very disorganized and full of delusional and unrelated content. She denies that she would seek to harm herself or others. ASSETS: Supportive family members. LIABILITIES: Limited insight. DIAGNOSTIC IMPRESSION: AXIS I: Schizoaffective disorder, bipolar type. AXIS II: None. AXIS III: Metastatic breast cancer, hypertension, and hyperlipidemia. AXIS IV: Severe stressors. AXIS V: Global assessment of functioning is 25. PLAN: At this time, the patient is admitted to the hospital for comprehensive medical, psychological, and social evaluation. She will be treated with both mood stabilizing and memory enhancing medications. Her long-term prognosis is guarded. TRANSINT:[id number] Voice Confirmation ID: [id number] DOCUMENT ID: [id number] JACLYN MONTES MD at 1426 CC: [id number] DICTATION DATE: 11/20/17 1212 CHARTER REPRESENTATIVE: 11/20/17 1248 ADM IN [facility] [address] [place] [address]
--- NOTE | ~2017-11-19 | PN ---
PATIENT:JIMBO WINN MEDICAL RECORD: [id number] LOCATION:NAHUNSharyn Aguilar112 ADMISSION DATE: 11/19/17 PROGRESS NOTE DATE OF SERVICE: 11/23/2017 SUBJECTIVE: The patient's case was discussed with staff. She has no new complaint. OBJECTIVE: The patient is in good behavioral control with limited insight about her condition. She tolerates her medicines well. ASSESSMENT: No change in diagnoses. PLAN: Brief supportive and educational interventions were made. Long-term prognosis is guarded. She did take her Haldol Decanoate shot yesterday and I am going to increase her scheduled dose of Haldol today. She is still very disorganized and is telling me that her cat at home understands what she is saying to her and is able to read her mind. TRANSINT:[id number] Voice Confirmation ID: [id number] DOCUMENT ID: [id number] JACLYN MONTES MD at 1127 CC: [id number] DICTATION DATE: 11/23/17 0956 PHARMACEUTICAL PHYSICIAN: 11/23/17 1052 ADM IN [facility] [address] [place] [address]
--- NOTE | ~2017-11-19 | DS ---
PATIENT:JIMBO WINN :52 MEDICAL RECORD: [id number] DISCHARGE SUMMARY ADMISSION DATE: 11/19/17 DISCHARGE DATE: 12/06/17 IDENTIFYING DATA: The patient is 67 years old and she is admitted to the hospital on a voluntary basis because of psychosis. The patient initially presented to the Emergency Room at [facility] and was delusional, psychotic, and rambling. She continues to display those disorganized behaviors and apparently was hospitalized briefly on the medical floor for reasons that are not clear to me. In late October, she did have an episode of supraventricular tachycardia, but that was already treated. She is not able to give much in the way of useful information at the time of admission, but was known to have a history of schizophrenia. HOSPITAL COURSE: The patient was admitted to the hospital and fully evaluated from both a medical, psychological, and social standpoint. It was my opinion that she did not have schizophrenia, but schizoaffective disorder, bipolar type. She was treated with both Depakote and Haldol. Her family, specifically the daughter, indicated that the patient has a long history of medication noncompliance and that she has been treated effectively in the past with long-acting Haldol Decanoate injections. She is currently very psychotic and delusional, talking to people who are not present and was very difficult to stabilize with 2 Haldol Decanoate injections and oral Haldol. She was also given Depakote and it was titrated to a therapeutic level. Although she was not actively dangerous, she was still showing evidence of gross disorganization and psychotic symptoms and is not capable of living alone. Based on this, she was transferred to a residential care facility. Followup is going to be with her primary care physician and an outpatient psychiatrist. She was prescribed long-acting Haldol Decanoate. DISCHARGE DIAGNOSES: AXIS I: Schizoaffective disorder, bipolar type. AXIS II: None. AXIS III: Metastatic breast cancer, hypertension, supraventricular tachycardia, and hyperlipidemia. AXIS IV: Moderate stressors. AXIS V: Global assessment of functioning is 30. PLAN: At the time of discharge, the patient continued to have delusions and psychotic symptoms that were fairly severe. She would spend a great deal of her time looking out the window or into the corner and carrying on extensive conversations with people not present. At the time of discharge, she was still having difficulty answering very simple questions without becoming distracted, disorganized and making a delusional response. At the time of discharge, she was not actively dangerous in a direct way meaning that she was not having any delusions or thoughts about harming herself or others, but she is incapable of functioning without significant supervision. This is clearly a decline from her preadmission level of functioning and probably related to the fact that her psychotic symptoms will take weeks to sufficiently improve if they are going to improve at all, but the fact that she was living independently and taking long-acting Haldol Decanoate shots indicates that this is not her baseline level of functioning. It is just a matter that she is not directly dangerous in some direct observable way. She will be supervised in the residential care facility and I think the amount of supervision she will receive is adequate and hopefully in the next few weeks or months, she will return to her baseline level of DISCHARGE SUMMARY REPORT [id number] TATUMNOELDYLLAN CAESAR functioning. Outpatient care will be provided again by her primary care doctor and outpatient psychiatrist at the [facility]. TRANSINT:[id number] Voice Confirmation ID: [id number] DOCUMENT ID: [id number] JACLYN MONTES MD at 1026 CC: [id number] DICTATION DATE: 12/07/17932 CRANE OPERATOR CAB: 12/07/17 2257 DIS IN 12/06/17 [facility] [address] [place] [address]
--- NOTE | ~2017-11-19 | PN ---
PATIENT:JIMBO WINN MEDICAL RECORD: [id number] LOCATION:MAGI Roy ADMISSION DATE: 11/19/17 PROGRESS NOTE DATE OF SERVICE: 11/27/2017 SUBJECTIVE: The patient's case was discussed with staff. She has no new complaint. OBJECTIVE: The patient is partially oriented, but attending to voices or people not present. She was standing in front of the window talking to someone, but when asked about it, says something that does not make any sense. She is also concerned about her veins. She shows me a vein that is normal in appearance and extends under the skin of her hand and she is saying that it runs all the way up into her neck where there is a hard knot. When asked to see it or to feel it, she says you cannot because it is inside, but that she is concerned that we are giving her something that is causing her veins to become hardened. ASSESSMENT: No change in diagnoses. PLAN: The patient is paranoid and delusional. She did receive a Haldol Decanoate shot yesterday and she continues to take her oral Haldol. TRANSINT:[id number] Voice Confirmation ID: [id number] DOCUMENT ID: [id number] JACLYN MONTES MD at 1100 CC: [id number] DICTATION DATE: 11/27/17 1109 INFANT BABYSITTER: 11/27/17 1154 ADM IN [facility] [address] [place] [address]
--- NOTE | ~2017-11-19 | PN ---
PATIENT:JIMBO WINN MEDICAL RECORD: [id number] LOCATION:NAHUNSharyn Aguilar112 ADMISSION DATE: 11/19/17 PROGRESS NOTE DATE OF SERVICE: 11/24/2017 SUBJECTIVE: The patient's case was discussed with staff. She has no new complaint. OBJECTIVE: The patient continues to be disorganized and delusional, but she seems a little better. She is able to carry on a reasonably coherent conversation which she has not been able to do before. She is compliant with her medications. ASSESSMENT: No change in diagnoses. PLAN: The patient's daughter does have guardianship, and she is going to try to place her in a Residential Care Facility in [place]. She will be maintained on her current medications. I am going to check a Depakote level. TRANSINT:[id number] Voice Confirmation ID: [id number] DOCUMENT ID: [id number] JACLYN MONTES MD at 1613 CC: [id number] DICTATION DATE: 11/24/17 1143 COMMUNITY ORGANIZATION DIRECTOR: 11/24/17 1228 [place] [address]
[~2017-11-19 16:46] MED LIST changes: +ALDACTONE25 MG PO; +CARDIZEM CD180 MG PO; +COREG6.25 MG PO; +DULCOLAX5 MG PO; +FLORAJEN3 CAPS460 MG PO; +LISINOPRIL2.5 MG PO; +MIRALAX17 GM PO; +PROLIA INJ 660 MG/M1 IJ
[2017-11-19] MEDS ORDERED: COREG6.25 MG PO (17:15)
[2017-11-19 17:29] VITALS: BP 97/62; BMI 22.4
[2017-11-19 19:39] VITALS: BP 117/62
[2017-11-20 06:03] LABS: BASOPHILS 0.5 % (0-2); EOSINOPHILS 1.9 % (0-7); HEMATOCRIT 45.6 % (36.0-48.0); IMMATURE GRANULOCYTES 0.2 % (0-5); LYMPHOCYTES 26.7 % (15-50); MCH 29.1 pg (26.0-34.0); MCHC 32.9 g/dL (31.0-37.0); MCV 88.4 fL (80.0-100.0); MEAN PLATELET VOLUME 9.8 fL (7.4-10.4); MONOCYTES 10.5 % (2-11); NEUTROPHILS 60.2 % (40-80); RBC 5.16 10x6/uL (4.00-5.40); RDW 14.9 % (11.5-14.5); WBC 8.3 10x3/uL (4.8-10.8)
[2017-11-20 06:11] LABS: PLATELET COUNT 200 10x3/uL (130-400)
[2017-11-20 07:01] LABS: ALBUMIN 3.2 g/dL (3.4-5.0); ANION GAP 12.1 mmol/L (8-16); BILIRUBIN - TOTAL 0.99 mg/dL (0.2-1.3); CALCIUM 8.7 mg/dL (8.5-10.1); CARBON DIOXIDE 26.1 mmol/L (21.0-32.0); CHOL - HDL RATIO 3.7 ratio (2.3-4.1); CREATININE - SERUM 0.9 mg/dL (0.6-1.3); LDL-HDL RATIO 2.3 ratio (1.5-3.5); POTASSIUM - SERUM 4.2 mmol/L (3.5-5.1); PROTEIN - SERUM 7.2 g/dL (6.4-8.2); THYROID STIMULATING HORMONE 2.13 uIU/mL (0.36-3.74)
[2017-11-20 08:00] VITALS: BP 121/75
[2017-11-20 19:58] VITALS: BP 122/75
[2017-11-21 09:57] VITALS: BP 139/88
[2017-11-21 13:06] VITALS: Ht 157.5 cm; Wt 55.3 kg
[2017-11-21 20:29] VITALS: BP 103/60
[2017-11-22 07:27] LABS: RAPID PLASMA REAGIN Non Reactive (Non Reactive)
[2017-11-22 08:00] VITALS: BP 133/84
[2017-11-22 08:20] LABS: FOLATE (FOLIC ACID) - SERUM >20.0 ng/mL (>3.0)
[2017-11-22 11:24] LABS: APPEARANCE CLEAR (CLEAR); BACTERIA MODERATE /hpf (NONE SEEN); BILIRUBIN NEGATIVE (NEGATIVE); COLOR YELLOW (YELLOW); EPITHELIAL CELLS OCC /hpf (0-5); GLUCOSE NEGATIVE (NEGATIVE); KETONE NEGATIVE (NEGATIVE); MUCUS <1+ /lpf (NONE SEEN); NITRITE NEGATIVE (NEGATIVE); PROTEIN NEGATIVE (NEGATIVE); SPECIFIC GRAVITY 1.015 (1.005-1.020); UROBILINOGEN NORMAL (NORMAL); WHITE CELLS - URINE 0-5 /hpf (0-5)
[2017-11-22 20:02] VITALS: BP 110/72
[2017-11-23 08:35] VITALS: BP 107/68
[2017-11-23 19:50] VITALS: BP 106/66
[2017-11-24 07:38] VITALS: BP 145/91
[2017-11-24 10:05] VITALS: BP 145/91
[2017-11-24 20:00] VITALS: BP 113/68
[2017-11-25 09:26] VITALS: BP 97/52
[2017-11-25 20:04] VITALS: BP 113/64
[2017-11-26 10:29] VITALS: BP 123/79
[2017-11-26 20:27] VITALS: BP 106/67
[2017-11-27 20:13] VITALS: BP 110/68
[2017-11-28 08:00] VITALS: BP 130/80
[2017-11-28 19:57] VITALS: BP 102/55
[2017-11-29 09:30] VITALS: BP 126/82
[2017-11-29 09:53] VITALS: BP 126/82
[2017-11-29 20:51] VITALS: BP 117/68
[2017-11-30 08:00] VITALS: BP 128/78
[2017-11-30 19:00] VITALS: BP 114/64
[2017-12-01 19:25] VITALS: BP 125/78
[2017-12-01 20:05] VITALS: BP 107/61
[2017-12-02 10:05] VITALS: BP 114/96
[2017-12-02 20:10] VITALS: BP 106/70
[2017-12-03 09:15] VITALS: BP 110/72
[2017-12-03 19:32] VITALS: BP 114/65
[2017-12-04 08:00] VITALS: BP 111/59
[2017-12-04] MEDS ORDERED: HALDOL DECAN50 MG/ML IM (11:03)
[2017-12-04] MEDS ORDERED: COREG12.5 MG PO (11:03)
[2017-12-04] MEDS ORDERED: DEPAKOTE SPRIN125 MG PO ×2 (11:03)
[2017-12-04 19:54] VITALS: BP 106/61
[2017-12-05 07:00] VITALS: BP 116/78
[2017-12-05 20:21] VITALS: BP 103/65
[2017-12-06 07:00] VITALS: BP 127/71
== END 2017-12-06 12:25 | disposition home or self-care (01) | DRG 885 ==
LOC: D.PSYCH 16:46
PROVIDERS: Psychiatry & Neurology Psychiatry
DX: F25.0 Schizoaffective disorder, bipolar type (principal); I47.1 Supraventricular tachycardia; C50.919 Malignant neoplasm of unspecified site of unspecified female breast; I10 Essential (primary) hypertension; E78.5 Hyperlipidemia, unspecified; K59.00 Constipation, unspecified; R73.9 Hyperglycemia, unspecified

== ENCOUNTER 2017-12-27 17:59 | Emergency (ER) | payer OTHER, MEDICAID ==
[~2017-12-27] VITALS: Ht 157.5 cm; Wt 56.8 kg
[~2017-12-27 17:59] MED LIST changes: +COREG12.5 MG PO; +DEPAKOTE SPRIN125 MG PO; +HALDOL DECAN50 MG/ML IM
[2017-12-27 18:09] VITALS: Ht 157.5 cm; Wt 56.8 kg
[2017-12-27 18:42] LABS: APPEARANCE CLEAR (CLEAR); BILIRUBIN NEGATIVE (NEGATIVE); COLOR YELLOW (YELLOW); GLUCOSE NEGATIVE (NEGATIVE); KETONE NEGATIVE (NEGATIVE); NITRITE NEGATIVE (NEGATIVE); PROTEIN NEGATIVE (NEGATIVE); SPECIFIC GRAVITY 1.015 (1.005-1.020); UROBILINOGEN NORMAL (NORMAL)
[2017-12-27 18:45] LABS: UDS - AMPHET NEGATIVE QUAL (NEGATIVE); UDS - BARB NEGATIVE QUAL (NEGATIVE); UDS - BENZO NEGATIVE QUAL (NEGATIVE); UDS - COCAINE NEGATIVE QUAL (NEGATIVE); UDS - OPIATE NEGATIVE QUAL (NEGATIVE); UDS - PCP NEGATIVE QUAL (NEGATIVE); UDS - THC NEGATIVE QUAL (NEGATIVE)
[2017-12-27 18:51] LABS: BACTERIA FEW /hpf (NONE SEEN); EPITHELIAL CELLS 0-5 /hpf (0-5); RED CELLS - URINE OCC /hpf (0-5); WHITE CELLS - URINE 0-5 /hpf (0-5)
[2017-12-27 19:08] LABS: BASOPHILS 0.4 % (0-2); EOSINOPHILS 3.5 % (0-7); HEMATOCRIT 42.6 % (36.0-48.0); HEMOGLOBIN 13.9 g/dL (12-16); IMMATURE GRANULOCYTES 0.1 % (0-5); LYMPHOCYTES 32.6 % (15-50); MCH 29.1 pg (26.0-34.0); MCHC 32.6 g/dL (31.0-37.0); MCV 89.1 fL (80.0-100.0); MEAN PLATELET VOLUME 10.1 fL (7.4-10.4); NEUTROPHILS 55.4 % (40-80); PLATELET COUNT 166 10x3/uL (130-400); RBC 4.78 10x6/uL (4.00-5.40); RDW 16.1 % (11.5-14.5); WBC 6.8 10x3/uL (4.8-10.8)
[2017-12-27 19:23] LABS: ALBUMIN 3.5 g/dL (3.4-5.0); ANION GAP 10.2 mmol/L (8-16); BILIRUBIN - TOTAL 0.19 mg/dL (0.2-1.3); CALCIUM 8.9 mg/dL (8.5-10.1); CARBON DIOXIDE 29.9 mmol/L (21.0-32.0); CREATININE - SERUM 0.9 mg/dL (0.6-1.3); POTASSIUM - SERUM 4.1 mmol/L (3.5-5.1); PROTEIN - SERUM 7.6 g/dL (6.4-8.2)
[2017-12-27 22:23] VITALS: BP 129/86
== END 2017-12-27 22:25 | disposition other institution (70) ==
LOC: D.ER 17:59
PROVIDERS: Family Medicine
DX: F20.9 Schizophrenia, unspecified (principal); M54.5 Low back pain; I11.0 Hypertensive heart disease with heart failure; I50.9 Heart failure, unspecified

== ENCOUNTER 2017-12-27 21:56 | Inpatient (IN) | payer MEDICARE, MEDICAID ==
[~2017-12-27] VITALS: Ht 157.5 cm; Wt 55.5 kg
--- NOTE | ~2017-12-27 | PN ---
PATIENT:JIMBO WINN MEDICAL RECORD: [id number] LOCATION:MaamePHILSharyn Aguilar112 ADMISSION DATE: 12/27/17 PROGRESS NOTE DATE OF SERVICE: 01/05/2018 SUBJECTIVE: The patient's case was discussed with staff. She has no new complaint. OBJECTIVE: The patient is in good behavioral control. She has limited insight about her condition. She is very delusional and intrusive. She is clearly unable to care for herself and needs a highly structured environment. Her long-term prognosis is also not very good. She is aware she has cancer, but I do not think she is aware that her prognosis is poor. TRANSINT:[id number] Voice Confirmation ID: [id number] DOCUMENT ID: [id number] JACLYN MONTES MD at 1327 CC: [id number] DICTATION DATE: 01/05/18 1040 QUALITY OFFICER: 01/05/18 1203 ADM IN [id number] [place] [address]
--- NOTE | ~2017-12-27 | DS ---
PATIENT:JIMBO WINN :52 MEDICAL RECORD: [id number] DISCHARGE SUMMARY ADMISSION DATE: 12/27/17 DISCHARGE DATE: 01/16/18 IDENTIFYING DATA: The patient is 67 years old and she is admitted to the hospital on a voluntary basis because of psychotic symptoms. The patient has been living in an assisted living center where she has been disruptive and difficult for them to manage. She was sent to the Emergency Room because she was delusional, rambling, disorganized and actively hallucinating. She was denying that she would seek to harm herself or others, but clearly was quite psychotic and disorganized. Apparently, she had been refusing to take her medications. HOSPITAL COURSE: The patient was admitted to the hospital and fully evaluated from both a medical, psychological, and social standpoint. With some difficulty, she resumed taking her medicine and at first it was inconsistent, but then became more consistent as the hospitalization progressed. She did show improvement, although she remained delusional throughout the course of the hospitalization. She was found placement in a group home and was subsequently transferred there. DISCHARGE DIAGNOSES: AXIS I: Schizoaffective disorder, bipolar type. AXIS II: None. AXIS III: 1. Metastatic breast cancer. 2. Hypertension and hyperlipidemia. AXIS IV: Moderate stressors. AXIS V: Global assessment of functioning is 35. PLAN: At the time of discharge, the patient was in good behavioral control and had no active thoughts of harming herself or others. She was delusional, but manageable. She has very poor insight about her condition. Followup is to be with her oncologist and her outpatient group home physician. Her long-term prognosis is guarded. She has a history of medication noncompliance and this is what precipitates her psychiatric hospitalizations. She also has a metastatic breast cancer and it is my understanding her that her prognosis is not very good. TRANSINT:[id number] Voice Confirmation ID: [id number] DOCUMENT ID: [id number] JACLYN MONTES MD CC: [id number] DICTATION DATE: 01/17/18 1153 LETTERER: 01/18/18 0156 DIS IN 01/16/18 [id number] [place] [address]
--- NOTE | ~2017-12-27 | PN ---
PATIENT:JIMBO WINN MEDICAL RECORD: [id number] LOCATION:MAGI Aguilar112 ADMISSION DATE: 12/27/17 PROGRESS NOTE DATE OF SERVICE: 01/02/2018 SUBJECTIVE: The patient's case was discussed with staff. She has no new complaint. OBJECTIVE: The patient remains delusional. She has very limited insight about her condition and is still concerned that her food might be poisoned, although she does not look at all distressed about it. I am going to maintain her on the Haldol Decanoate. Efforts are being made to place her in a detention. I am not sure if she is going to qualify. She is mentally ill. She also has cancer, but I do not know that they are going to allow this. I would prefer she go to a detention rather than assisted living given her condition, both psychiatrically and medically. I have not talked to her oncologist, but it is my impression from what I have seen about her breast cancer that the prognosis is not good. TRANSINT:[id number] Voice Confirmation ID: [id number] DOCUMENT ID: [id number] JACLYN MONTES MD at 1042 CC: [id number] DICTATION DATE: 01/02/18 1639 BLAST FURNACE SUPERVISOR: 01/02/18 1804 ADM IN [address] [place] [address]
--- NOTE | ~2017-12-27 | PN ---
PATIENT:JIMBO WINN MEDICAL RECORD: [id number] LOCATION:MAGI Aguilar112 ADMISSION DATE: 12/27/17 PROGRESS NOTE DATE OF SERVICE: 01/01/2018 SUBJECTIVE: The patient's case was discussed with staff. She has no new complaint. OBJECTIVE: The patient is still very loose, disorganized and delusional. As it just happened, she had just been served her lunch when I came to see her and when I asked to talk to her for a few minutes, she told me that, that would be fine, but she could not leave her plate because she was afraid that one of the nurses would poison it. When asked if this has happened since she has been here, she assures me that it has, but God has healed her from it. When asked who, she says she knows who is doing it, but she cannot tell me which one and will not say why. ASSESSMENT: No change in diagnoses. PLAN: The patient is delusional. Clearly, she is not less delusional, although she has received a Haldol Decanoate shot. I am going to continue her on oral Haldol. TRANSINT:[id number] Voice Confirmation ID: [id number] DOCUMENT ID: [id number] JACLYN MONTES MD at 1556 CC: [id number] DICTATION DATE: 01/01/18 1313 GYNECOLOGICAL ASSISTANT: 01/01/18 1530 ADM IN [address] [place] [address]
--- NOTE | ~2017-12-27 | PN ---
PATIENT:JIMBO WINN MEDICAL RECORD: [id number] LOCATION:NAHUNSharyn Aguilar112 ADMISSION DATE: 12/27/17 PROGRESS NOTE DATE OF SERVICE: 01/11/2018 SUBJECTIVE: The patient's case was discussed with staff. She has no new complaint. OBJECTIVE: The patient denies intent to harm herself or others. She generally tolerates her medicines well. ASSESSMENT: No change in diagnoses. PLAN: The patient is disorganized and delusional. She is going to require 67-uplh-i-day supervision. Her long-term prognosis is guarded. TRANSINT:[id number] Voice Confirmation ID: [id number] DOCUMENT ID: [id number] JACLYN MONTES MD at 0908 CC: [id number] DICTATION DATE: 01/11/18 112 ENGRAVER WOOD: 01/11/18 1227 ADM IN [address] [place] [address]
--- NOTE | ~2017-12-27 | PN ---
PATIENT:JIMBO WINN MEDICAL RECORD: [id number] LOCATION:MAGI Aguilar112 ADMISSION DATE: 12/27/17 PROGRESS NOTE DATE OF SERVICE: 01/08/2018 OBJECTIVE: The patient is very disorganized, intrusive and delusional. She is not openly aggressive. She certainly needs a great deal of supervision. ASSESSMENT: No change in diagnoses. PLAN: Supportive and educational interventions were made. Long-term prognosis is guarded. TRANSINT:[id number] Voice Confirmation ID: [id number] DOCUMENT ID: [id number] JACLYN MONTES MD at 1551 CC: [id number] DICTATION DATE: 01/08/18 1200 ELECTRICAL ENGINEER MEP: 01/08/18 1222 ADM IN [address] [place] [address]
--- NOTE | ~2017-12-27 | PN ---
PATIENT:JIMBO WINN MEDICAL RECORD: [id number] LOCATION:NAHUNSharyn Aguilar112 ADMISSION DATE: 12/27/17 PROGRESS NOTE DATE OF SERVICE: 01/07/2018 SUBJECTIVE: The patient's case was discussed with staff. She has no new complaint. OBJECTIVE: The patient is in good behavioral control with limited insight about her condition. She does tolerate her medicines well. She remains delusional and disorganized. ASSESSMENT: No change in diagnoses. PLAN: The patient is still psychotic, but probably is getting close to her baseline level of psychotic thinking. She is taking the Haldol Decanoate injections and if those can be maintained on a scheduled basis, I think she will stabilize nicely from a psychiatric standpoint. TRANSINT:[id number] Voice Confirmation ID: [id number] DOCUMENT ID: [id number] JACLYN MONTES MD at 1050 CC: [id number] DICTATION DATE: 01/07/18 1324 RUBBER CHEMIST: 01/07/18 1349 ADM IN [id number] [place] [address]
--- NOTE | ~2017-12-27 | PN ---
PATIENT:JIMBO WINN MEDICAL RECORD: [id number] LOCATION:MAGI Aguilar112 ADMISSION DATE: 12/27/17 PROGRESS NOTE DATE OF SERVICE: 01/06/2018 SUBJECTIVE: The patient's case was discussed with staff. She has no new complaint. OBJECTIVE: The patient is in good behavioral control with limited insight about her condition. She does tolerate her medicines well. She is delusional about a port she has in her side. She wants it removed today and becomes angry when I tell her that cannot be done today and it also cannot be done without her oncologist ordering it. She does not attacked me, but becomes quite angry, red faced, balls her fists up and stamps away from me, cursing. TRANSINT:[id number] Voice Confirmation ID: [id number] DOCUMENT ID: [id number] JACLYN MONTES MD at 1309 CC: [id number] DICTATION DATE: 01/06/18 1336 DECORATING INSPECTOR: 01/06/18 1551 ADM IN [address] [place] [address]
--- NOTE | ~2017-12-27 | PN ---
PATIENT:JIMBO WINN MEDICAL RECORD: [id number] LOCATION:MAGI Aguilar112 ADMISSION DATE: 12/27/17 PROGRESS NOTE DATE OF SERVICE: 12/30/2017 SUBJECTIVE: The patient's case was discussed with staff. She has no new complaint. OBJECTIVE: The patient is in good behavioral control with limited insight about her condition. She is very disorganized and delusional, jumping from subject to subject. She denies that she would seek to harm herself. ASSESSMENT: No change in diagnoses. PLAN: The patient did receive her Haldol Decanoate shot. History related to me from her daughter is that she was very well stabilized on long-acting Haldol for over a decade. She was somewhat functional and certainly stayed out of the hospital for the 10-year period that she took it consistently. I am hopeful that we can return her to that state. Her long-term prognosis is guarded. TRANSINT:[id number] Voice Confirmation ID: [id number] DOCUMENT ID: [id number] JACLYN MONTES MD at 1249 CC: [id number] DICTATION DATE: 12/30/17 1643 SHIPS EQUIPMENT ENGINEER: 12/30/17 1739 ADM IN [address] [place] [address]
--- NOTE | ~2017-12-27 | PSY ---
PATIENT NAME:JIMBO WINN MEDICAL RECORD: [id number] : 52 LOCATION:MAGI Manuela7 ADMISSION DATE: 12/27/17 ACCOUNT: [id number] PSYCHIATRIC EVALUATION DATE OF EVALUATION: 12/28/17 IDENTIFYING DATA: The patient is 67 years old and she is admitted to the hospital on a voluntary basis. CHIEF COMPLAINT: None. HISTORY OF PRESENT ILLNESS: The patient is known to us from previous clinical contact. She was here about a month ago and was subsequently treated and sent to the assisted living center. Since going there, she has been significantly disruptive and problematic for them to manage. She was sent to the Emergency Room because she was delusional, rambling, and disorganized and on exam, she certainly is. She denies that she would seek to harm herself or others, but is clearly psychotic and I am sure it is related to medication noncompliance. PAST MEDICAL HISTORY: Significant for breast cancer. The patient has had a left mastectomy and also has a history of hypertension and hyperlipidemia. PAST PSYCHIATRIC HISTORY: Significant for longstanding chronic mental illness, primarily diagnosed as schizoaffective. She has a history of not taking medications and in the past have been nicely stabilized on Haldol decanoate. FAMILY HISTORY: Negative for psychiatric disease by her account. ALLERGIES: HYDROCODONE. CURRENT MEDICATIONS: Please see the admissions MAR. SOCIAL HISTORY: The patient is . She does have an adult daughter who is involved with her care. She has never been very functional socially or occupationally. She does not have a history of substance abuse. MENTAL STATUS EXAMINATION: The patient is awake, alert and oriented to person, place and somewhat to time and situation. Her mood is euthymic. Her affect is generally appropriate. Thought processes are disorganized and filled with delusional content and loose associations. She says she has no thoughts of harming herself or others. She denies psychotic symptoms, but is clearly experiencing them. ASSETS: Supportive family members. LIABILITIES: Limited insight. DIAGNOSTIC IMPRESSION: AXIS I: Schizoaffective disorder, bipolar type. AXIS II: None. AXIS III: 1. Metastatic breast cancer. 2. Hypertension. 3. Hyperlipidemia. AXIS IV: Moderate stressors. AXIS V: Global assessment of functioning is 30. PLAN: At this time, the patient is admitted to the hospital for a comprehensive medical, psychological, and social evaluation. She will be treated with both mood stabilizing and antipsychotic medications. Her long-term prognosis is guarded. TRANSINT:[id number] Voice Confirmation ID: [id number] DOCUMENT ID: [id number] JACLYN MONTES MD at 1613 CC: [id number] DICTATION DATE: 12/28/17 1223 PRIVATE DUTY NURSE: 12/28/17 1235 ADM IN [address] [place] [address]
--- NOTE | ~2017-12-27 | PN ---
PATIENT:JIMBO WINN MEDICAL RECORD: [id number] LOCATION:MAGI Aguilar112 ADMISSION DATE: 12/27/17 PROGRESS NOTE DATE OF SERVICE: 12/31/2017 SUBJECTIVE: The patient's case was discussed with staff. She has no new complaint. OBJECTIVE: The patient did receive her Haldol Decanoate injection. She is currently taking Depakote on a scheduled basis. I believe she has been mostly compliant with that. ASSESSMENT: No change in diagnoses. PLAN: The patient will have a valproic acid level checked. She will be monitored for clinical changes associated with her current medicines. TRANSINT:[id number] Voice Confirmation ID: [id number] DOCUMENT ID: [id number] JACLYN MONTES MD at 1556 CC: [id number] DICTATION DATE: 12/31/17 1305 DOUBLE END TRIMMER: 12/31/17 1310 ADM IN [id number] [place] [address]
--- NOTE | ~2017-12-27 | PN ---
PATIENT:JIMBO WINN MEDICAL RECORD: [id number] LOCATION:MAGI Aguilar112 ADMISSION DATE: 12/27/17 PROGRESS NOTE DATE OF SERVICE: 01/12/2018 SUBJECTIVE: The patient's case was discussed with staff. She has no new complaint. OBJECTIVE: The patient continues to be very disorganized. She is loose with her associations. She did have a therapeutic Depakote level almost 2 weeks ago. I am going to check another level and will order a higher dose of her scheduled Haldol. TRANSINT:[id number] Voice Confirmation ID: [id number] DOCUMENT ID: [id number] JACLYN MONTES MD at 1730 CC: [id number] DICTATION DATE: 01/12/18 1429 HAND ALTERATIONS TAILOR: 01/12/18 1521 ADM IN [address] [place] [address]
--- NOTE | ~2017-12-27 | PN ---
PATIENT:JIMBO WINN MEDICAL RECORD: [id number] LOCATION:MaameMiriamJOANNA Aguilar112 ADMISSION DATE: 12/27/17 PROGRESS NOTE DATE OF SERVICE: 01/14/2018 SUBJECTIVE: The patient's case was discussed with staff. She has no new complaint. OBJECTIVE: The patient is in good behavioral control with limited insight about her condition. She is intrusive and hyperverbal. She has been taking Haldol at a dose of 4 mg a day. I am going to increase that today to 5 mg at bedtime. TRANSINT:[id number] Voice Confirmation ID: [id number] DOCUMENT ID: [id number] JACLYN MONTES MD at 1052 CC: [id number] DICTATION DATE: 01/14/18 1216 SURVEY WORKERS SUPERVISOR: 01/14/18 1513 ADM IN [address] [place] [address]
--- NOTE | ~2017-12-27 | PN ---
PATIENT:JIMBO WINN MEDICAL RECORD: [id number] LOCATION:MAGI Aguilar112 ADMISSION DATE: 12/27/17 PROGRESS NOTE DATE OF SERVICE: 01/10/2018 SUBJECTIVE: The patient's case was discussed with staff. She has no new complaint. OBJECTIVE: The patient denies intent to harm herself or others. She generally tolerates her medications well. ASSESSMENT: No change in diagnoses. PLAN: Supportive and educational interventions were made. Long-term prognosis is guarded. TRANSINT:[id number] Voice Confirmation ID: [id number] DOCUMENT ID: [id number] JACLYN MONTES MD at 1058 CC: [id number] DICTATION DATE: 01/10/18 1438 MAIL HANDLER ASSISTANT: 01/10/18 1629 ADM [address] [place] [address]
--- NOTE | ~2017-12-27 | PN ---
PATIENT:JIMBO WINN MEDICAL RECORD: [id number] LOCATION:MAGI Aguilar112 ADMISSION DATE: 12/27/17 PROGRESS NOTE DATE OF SERVICE: 01/15/2018 SUBJECTIVE: The patient's case was discussed with staff. She has no new complaint. OBJECTIVE: The patient is in good behavioral control with limited insight about her condition. She does tolerate her medicines well. ASSESSMENT: No change in diagnoses. PLAN: The patient will be maintained on current medicines. I anticipate she can be transitioned out of the hospital tomorrow. TRANSINT:[id number] Voice Confirmation ID: [id number] DOCUMENT ID: [id number] JACLYN MONTES MD at 1541 CC: [id number] DICTATION DATE: 01/15/18 120 HVAC ESTIMATOR: 01/15/18 1717 DIS IN 01/16/18 [place] [place] [address]
--- NOTE | ~2017-12-27 | PN ---
PATIENT:JIMBO WINN MEDICAL RECORD: [id number] LOCATION:MaameMiriamJOANNA Aguilar112 ADMISSION DATE: 12/27/17 PROGRESS NOTE DATE OF SERVICE: 01/13/2018 SUBJECTIVE: The patient's case was discussed with staff. She has no new complaint. OBJECTIVE: The patient continues to be delusional, disorganized and intrusive, but not so much in a way that is directly dangerous other than to say she needs supervision. ASSESSMENT: No change in diagnoses. PLAN: Her initial dose of oral Haldol has been tolerated well, but obviously it has not had an opportunity to help with her psychotic symptoms. I am going to recommend she stay on an oral dose of Haldol for at least a couple of months and that will give her a chance to have a couple of more injections of the Haldol Decanoate. After she has had 3, perhaps 4 injections of Haldol Decanoate, I think it might be reasonable to stop the oral medication. TRANSINT:[id number] Voice Confirmation ID: [id number] DOCUMENT ID: [id number] JACLYN MONTES MD at 1204 CC: [id number] DICTATION DATE: 01/13/18 185 CHIEF MEDICAL PHYSICIST: 01/14/18 0154 ADM IN [address] [place] [address]
--- NOTE | ~2017-12-27 | PN ---
PATIENT:JIMBO WINN MEDICAL RECORD: [id number] LOCATION:[facility] ADMISSION DATE: 12/27/17 PROGRESS NOTE DATE OF SERVICE: 01/04/2018 SUBJECTIVE: The patient's case was discussed with staff. She has no new complaint. OBJECTIVE: The patient is delusional and disorganized, but not in a way that is a direct risk to herself or others. She is going to require ongoing monitoring and supervision. Her long-term prognosis is guarded. TRANSINT:[id number] Voice Confirmation ID: [id number] DOCUMENT ID: [id number] JACLYN MONTES MD at 1021 CC: [id number] DICTATION DATE: 01/04/18 1217 PUBLICITY WRITER: 01/04/18 1240 ADM IN [place] [id number] [place] [address]
--- NOTE | ~2017-12-27 | PN ---
PATIENT:JMIBO WINN MEDICAL RECORD: [id number] LOCATION:[facility] ADMISSION DATE: 12/27/17 PROGRESS NOTE DATE OF SERVICE: 12/29/2017 SUBJECTIVE: The patient's case was discussed with staff. She has no new complaint. OBJECTIVE: The patient is in good behavioral control, but very disorganized. She is refusing many of her medications. ASSESSMENT: No change in diagnoses. PLAN: I am going to order the patient a Haldol Decanoate shot. She will be monitored for clinical changes associated with its use. Her long-term prognosis is guarded. TRANSINT:[id number] Voice Confirmation ID: [id number] DOCUMENT ID: [id number] JACLYN MONTES MD at 1627 CC: [id number] DICTATION DATE: 12/29/17 1715 DRY YARD WORKER: 12/29/17 2154 ADM IN [place] [id number] [place] [address]
--- NOTE | ~2017-12-27 | PN ---
PATIENT:JIMBO WINN MEDICAL RECORD: [id number] LOCATION:[facility] ADMISSION DATE: 12/27/17 PROGRESS NOTE DATE OF SERVICE: 01/09/2018 SUBJECTIVE: The patient's case was discussed with staff. She has no new complaint. OBJECTIVE: The patient is in good behavioral control with poor insight about her condition. She is intrusive and delusional, but not in a way that would be directly dangerous. ASSESSMENT: No change in diagnoses. PLAN: Current medicines have been reviewed and will be maintained. Za Ferguson is going to interview her for prison placement. I recommend prison placement based upon her level of impairment, need for supervision, inability to care for herself, and the fact that she has most likely terminal breast cancer. TRANSINT:[id number] Voice Confirmation ID: [id number] DOCUMENT ID: [id number] JACLYN MONTES MD at 0932 CC: [id number] DICTATION DATE: 01/09/18 1625 SHANK THREADER: 01/09/18 1721 ADM IN [place] [id number] [place] [address]
--- NOTE | ~2017-12-27 | PN ---
PATIENT:JIMBO WINN MEDICAL RECORD: [id number] LOCATION:[facility] Isabel[facility]iamAdi ADMISSION DATE: 12/27/17 PROGRESS NOTE DATE OF SERVICE: 01/03/2018 SUBJECTIVE: The patient's case was discussed with staff. She has no new complaint. OBJECTIVE: The patient denies intent to harm herself or others. She denies any overt psychotic symptoms, but is very delusional with loose associations. ASSESSMENT: No change in diagnoses. PLAN: Current medicines and therapies have been reviewed and will be maintained. Long-term prognosis is guarded. TRANSINT:[id number] Voice Confirmation ID: [id number] DOCUMENT ID: [id number] JACLYN MONTES MD at 1133 CC: [id number] DICTATION DATE: 01/03/18 1527 BAR POINTER: 01/03/182010 ADM IN [facility] [address] [place] [address]
[2017-12-28 02:46] VITALS: BP 137/82; BMI 22.5
[2017-12-28 08:04] VITALS: BP 133/65
[2017-12-28 09:09] VITALS: BMI 22.4
[2017-12-28 09:31] VITALS: Ht 157.5 cm; Wt 55.5 kg
[2017-12-28 10:18] LABS: CHOL - HDL RATIO 3.3 ratio (2.3-4.1); THYROID STIMULATING HORMONE 2.47 uIU/mL (0.36-3.74); VALPROIC ACID (DEPAKOTE) 55.9 ug/mL (50.0-100.0)
[2017-12-28 20:04] VITALS: BP 109/63
[2017-12-29 07:36] VITALS: BP 123/82
[2017-12-29 08:20] LABS: FOLATE (FOLIC ACID) - SERUM >20.0 ng/mL (>3.0)
[2017-12-29 09:13] VITALS: BP 140/73
[2017-12-29 20:49] VITALS: BP 90/47
[2017-12-30 06:17] LABS: RAPID PLASMA REAGIN Non Reactive (Non Reactive)
[2017-12-30 07:26] LABS: VITAMIN D 25 HYDROXY 35.5 ng/mL (30.0-100.0)
[2017-12-30 11:03] VITALS: BP 111/62
[2017-12-31 08:00] VITALS: BP 127/70
[2017-12-31 20:23] VITALS: BP 99/61
[2018-01-01 08:00] VITALS: BP 109/63
[2018-01-01 20:20] VITALS: BP 132/59
[2018-01-02 09:25] VITALS: BP 114/62
[2018-01-02 19:33] VITALS: BP 106/61
[2018-01-03 09:37] VITALS: BP 120/62
[2018-01-03 20:00] VITALS: BP 103/49
[2018-01-04 10:22] VITALS: BP 108/58
[2018-01-04 19:41] VITALS: BP 102/52
[2018-01-05 09:25] VITALS: BP 125/67
[2018-01-05 19:14] VITALS: BP 112/60
[2018-01-06 08:04] VITALS: BP 95/60
[2018-01-06 20:04] VITALS: BP 144/70
[2018-01-07 10:18] VITALS: BP 126/77
[2018-01-07 21:22] VITALS: BP 132/76
[2018-01-08 08:52] VITALS: BP 131/71
[2018-01-08 20:00] VITALS: BP 100/59
[2018-01-09 08:00] VITALS: BP 124/76
[2018-01-09 19:53] VITALS: BP 119/71
[2018-01-10 08:00] VITALS: BP 123/71
[2018-01-10 19:53] VITALS: BP 112/60
[2018-01-11 07:30] VITALS: BP 114/58
[2018-01-11 19:47] VITALS: BP 127/64
[2018-01-12 09:52] VITALS: BP 131/73
[2018-01-12 20:06] VITALS: BP 130/70
[2018-01-13 09:07] VITALS: BP 105/55
[2018-01-13 19:40] VITALS: BP 107/60
[2018-01-14 09:25] VITALS: BP 135/66
[2018-01-15 09:34] VITALS: BP 123/77
[2018-01-15] MEDS ORDERED: COREG6.25 MG PO (12:09)
[2018-01-15] MEDS ORDERED: HALDOL5 MG PO (12:10)
[2018-01-15 20:31] VITALS: BP 144/23
[2018-01-16 07:00] VITALS: BP 110/74
== END 2018-01-16 13:00 | DRG 885 ==
LOC: D.PSYCH 21:56
PROVIDERS: Psychiatry & Neurology Psychiatry
DX: F25.0 Schizoaffective disorder, bipolar type (principal); C79.51 Secondary malignant neoplasm of bone; Z85.3 Personal history of malignant neoplasm of breast; I10 Essential (primary) hypertension; E78.5 Hyperlipidemia, unspecified; M50.30 Other cervical disc degeneration, unspecified cervical region; M51.36 Other intervertebral disc degeneration, lumbar region

== ENCOUNTER → 2018-03-28 08:45 | Outpatient (CLI) | payer OTHER, MEDICAID ==
[2017-12-28 09:31] VITALS: BMI 22.3
[~2018-03-28 08:45] MED LIST changes: +HALDOL5 MG PO
== END | disposition home or self-care (01) ==
LOC: D.CT 03-22 13:30
DX: C50.912 Malignant neoplasm of unspecified site of left female breast (principal); C79.51 Secondary malignant neoplasm of bone; Z85.3 Personal history of malignant neoplasm of breast

== ENCOUNTER → 2018-07-04 09:22 | Outpatient (CLI) | payer OTHER, MEDICAID ==
[2017-12-28 09:31] VITALS: BMI 22.3
== END | disposition home or self-care (01) ==
LOC: D.NM 09:22
PROVIDERS: ATTEND Legal Medicine
DX: C79.51 Secondary malignant neoplasm of bone (principal)

== ENCOUNTER → 2018-07-04 12:32 | Outpatient (CLI) | payer OTHER, MEDICAID ==
[2017-12-28 09:31] VITALS: BMI 22.3
--- NOTE | 2018-07-11 13:26 | EC ---
PATIENT:JIMBO WINN DATE OF SERVICE: 07/04/18 SEX: F MEDICAL RECORD: [id number] DATE OF : [birth year] LOCATION:D.[facility] AGE OF PATIENT: 68 ADMISSION DATE: 07/04/18 REFERRING PHYSICIAN: INTERPRETING PHYSICIAN: JADE LI MD ECHOCARDIOGRAM REPORT ECHO CHARGES 4 ECHO COMPLETE Date: 07/04/18 CLINICAL DIAGNOSIS: CARIOMYOPATHY/FATIGUE ECHOCARDIOGRAPHIC MEASUREMENTS (adult normal given) AC root (d.<3.7cm) 3.2 cm LV Septum d (<1.2 cm> 1.0 cm Valve Excursion 1.3 cm LV Septum (systole) 1.2 cm Left Atria (s.<4.0cm> 2.9 cm LVPW d(<1.2cm) 1.3 cm RV (d.<2.3cm) 2.5 cm LVPW (sytole) 1.5 cm LV diastole(<5.6CM) 5.1 cm MV E-F(>70mm/sec) cm LV systole 3.9 cm LVOT Diameter 1.9 cm MV exc.(>10mm) 1.3 cm Est.ejection fraction (50-75%) % DOPPLER: LVIT cm/sec A 74.0 cm/sec E 63.0 cm/sec LA cm/sec RVSP 34 mmHg LVOT 79 cm/sec AOP1/2T 593 m/s Asc. Ao 103 cm/sec RVOT 67 cm/sec RA cm/sec PA 93 cm/sec AV Gradient Peak 4.25 mmHg AV Mean 2.07 mmHg AV Area 2.5 cm MV Gradient Peak 2.85 mmHg MV Mean 1.07 mmHg MV Area cm COMMENTS: Eyelet Operator: 2 DEE DEE RITTER Automated Cutting Machine Operator: 3 Dr. Cruz TAPE# PACS Pericardial Effusion N DATE OF SERVICE: Adequate 2-D echo, color-flow and spectral Doppler, and M-mode. No LVH. LV internal dimension is normal. Wall motion is normal. EF is greater than or equal to 55%. Aortic valve is tricuspid. No stenosis by Doppler interrogation. Left atrium is normal at 3.9 cm. Mitral valve shows no prolapse. Mild MR. Right-sided chambers are grossly normal. Trace TR. TRANSINT:[id number] Voice Confirmation ID: [id number] DOCUMENT ID: [id number] ECHOCARDIOGRAM REPORT [id number] JIMBO WINN GREGORY A MD at 1326 CC: [id number] DICTATION DATE: 07/05/18 1244 YARD CALLER: 07/05/18 1330 DEP CLI 07/04/18 [place] [id number] [place] [id number]
== END | disposition home or self-care (01) ==
LOC: D.HCCARDIO 06-30 11:00
PROVIDERS: ATTEND Internal Medicine Interventional Cardiology
DX: C79.51 Secondary malignant neoplasm of bone (principal)

== ENCOUNTER 2019-06-22 11:49 | Observation (INO) | payer OTHER, MEDICAID ==
[2019-06-22] VITALS (10 sets, daily range): BP systolic 89–137; BP diastolic 45–68; Ht 157.5 cm; Wt 63.6 kg
[~2019-06-22] VITALS: Ht 157.5 cm; Wt 63.6 kg
--- NOTE | 2019-06-22 12:10 | NUR ---
SECOND EKG DONE D/T ELEVATED HR.
--- NOTE | 2019-06-22 12:15 | NUR ---
MOVED TO ROOM T3 FOR CRASH CART ACCESS WHILE GIVING ADENOSINE. RHYTHM CHANGED DURING TRANSFER TO T3. ADENOSINE ON HOLD.
[2019-06-22 12:30] LABS: CALC OSMOLALITY 273 mosm/kg (275-300); CALCIUM 9.2 mg/dL (8.5-10.1); CARBON DIOXIDE 26.9 mmol/L (21.0-32.0); CHLORIDE - SERUM 102 mmol/L (98-107); GLUCOSE 142 mg/dL (74-106); POTASSIUM - SERUM 4.4 mmol/L (3.5-5.1); SODIUM 136 mmol/L (136-145); UREA NITROGEN 12 mg/dL (7-18); eGFR NON AFRICAN AMERICAN 58 mL/min (90-120)
[2019-06-22 12:40] LABS: BASOPHILS 0.2 % (0-2); EOSINOPHILS 0.8 % (0-7); HEMATOCRIT 39.7 % (36.0-48.0); HEMOGLOBIN 12.2 g/dL (12-16); IMMATURE GRANULOCYTES 0.5 % (0-5); LYMPHOCYTES 17.1 % (15-50); MCH 27.4 pg (26.0-34.0); MCHC 30.7 g/dL (31.0-37.0); MEAN PLATELET VOLUME 9.1 fL (7.4-10.4); MONOCYTES 11.4 % (2-11); PLATELET COUNT 341 10x3/uL (130-400); RBC 4.46 10x6/uL (4.00-5.40); RDW 14.9 % (11.5-14.5); WBC 9.1 10x3/uL (4.8-10.8)
[2019-06-22 12:42] LABS: APTT 33.1 SECONDS (22.8-39.4); INR 1.03 (0.85-1.17); PROTIME 13.5 SECONDS (11.6-15.0)
[2019-06-22 12:44] LABS: ALBUMIN 2.9 g/dL (3.4-5.0); ALKALINE PHOSPHATASE 108 U/L (30-120); ALT (SGPT) 10 U/L (10-68); BILIRUBIN - TOTAL 0.27 mg/dL (0.2-1.3); CKMB 0.5 U/L (0.0-3.6); CREATINE KINASE 46 UL (21-215); MAGNESIUM - SERUM 2.2 mg/dL (1.8-2.4); PRO BNP 7379 pg/mL (0-125); PROTEIN - SERUM 8.1 g/dL (6.4-8.2); TROPONIN-I < 0.017 ng/mL (0.000-0.060)
[2019-06-22 12:54] LABS: D-DIMER-QUANTITATIVE 1.63 ug/mLFEU (0.20-0.54)
[2019-06-22 13:26] LABS: BILIRUBIN NEGATIVE (NEGATIVE); EPITHELIAL CELLS 0-5 /hpf (0-5); GLUCOSE NEGATIVE (NEGATIVE); KETONE NEGATIVE (NEGATIVE); NITRITE NEGATIVE (NEGATIVE); SPECIFIC GRAVITY 1.015 (1.005-1.020); UROBILINOGEN NORMAL (NORMAL)
[2019-06-22 13:28] LABS: BACTERIA FEW /hpf (NEGATIVE)
--- NOTE | 2019-06-22 16:45 | NUR ---
RECEIVED PT TO ROOM 2115 VIA STRETCHER AAOX2 ORIENTED TO SELF AND PLACE RESP UNLABORED SKIN W/D TELEMETRY SR RATE 89
[2019-06-22] MEDS ORDERED: FEMARA2.5 MG PO (18:02)
[2019-06-22] MEDS ORDERED: COREG 3.1253.125 MG PO (18:05)
[2019-06-22] MEDS ORDERED: MS CONTIN30 MG PO (18:12)
[2019-06-22] MEDS ORDERED: PRAVACHOL20 MG PO (18:14)
[2019-06-22] MEDS ORDERED: OXYCONTIN10 MG PO (18:14)
[2019-06-22] MEDS ORDERED: APAP325 MG PO (18:15)
[2019-06-22] MEDS ORDERED: BACLOFEN10 MG PO (18:16)
--- NOTE | 2019-06-22 19:45 | NUR ---
REPORT RECIEVED AND INITIAL ROUNDS COMPLETED. PT RESTING IN BED WITH DAUGHTER AT BEDSIDE. PT IS ALERT/ORIENTED WITH RAMBLING CONVERSATION AND POOR ATTENTION SPAN. CURRENTLY SR/84 PER TELEMETRY. PT RECANTING EXTENSIVE MEDICAL HISTORY AND NEEDS FOR HOME MEDS TO BE STARTED TONIGHT. LAMP SHADE ASSEMBLER IS ALREADY AWARE. CPOC.
--- NOTE | 2019-06-22 20:43 | NUR ---
PAGE TO JOSE WILLIS. DAUGHTER WANTS MORPHINE AND OXYCODONE RESTARTED TONIGHT THEY ARE HOME MEDS THAT PATIENT MUST HAVE FOR HER LEG PAIN.
--- NOTE | 2019-06-22 22:35 | NUR ---
AFTER GETTING NEW MEDS ORDERED PER MECHANICAL HANDYMAN, DAUGHTER STATES THAT THE MEDS LISTED WERE NOT CORRECT. SHE DOES NOT WANT PATIENT TO RECIEVE HALDOL 5MG ORAL OR ANY MS CONTIN OR IV MORPHINE. SHE IS ONLY IN AGREEMENT TO PATIENT TAKING HER OXYCONTIN AT BEDTIME. UPDATED MED REC TO DAUGHTERS AGREEMENT AND WILL HOLD MEDS SHE DOES NOT WANT HER MOTHER TO RECIEVE.
--- NOTE | 2019-06-22 22:58 | NUR ---
BEDTIME MEDS GIVEN THAT DAUGHTER WAS IN AGREEMENT TO. DAUGHTER HAS NOW LEFT FOR THE NIGHT. PT RESTING WITH ALL LIGHTS ON IN HER ROOM AT HER REQUEST. CPOC.
[2019-06-23 00:01] VITALS: BP 104/56
[2019-06-23 04:00] VITALS: BP 105/60
[2019-06-23 06:10] LABS: HEMATOCRIT 35.6 % (36.0-48.0); HEMOGLOBIN 11.1 g/dL (12-16); LYMPHOCYTES 32.7 % (15-50); MCH 27.2 pg (26.0-34.0); MCHC 31.2 g/dL (31.0-37.0); MCV 87.3 fL (80.0-100.0); MEAN PLATELET VOLUME 8.9 fL (7.4-10.4); NEUTROPHILS 53.6 % (40-80); PLATELET COUNT 298 10x3/uL (130-400); RBC 4.08 10x6/uL (4.00-5.40); WBC 6.9 10x3/uL (4.8-10.8)
[2019-06-23 06:56] LABS: ALBUMIN 2.6 g/dL (3.4-5.0); ALKALINE PHOSPHATASE 89 U/L (30-120); ALT (SGPT) 12 U/L (10-68); BILIRUBIN - TOTAL 0.19 mg/dL (0.2-1.3); CALCIUM 8.1 mg/dL (8.5-10.1); CARBON DIOXIDE 30.2 mmol/L (21.0-32.0); CHLORIDE - SERUM 102 mmol/L (98-107); CKMB 0.4 U/L (0.0-3.6); CREATINE KINASE 38 UL (21-215); CREATININE - SERUM 0.8 mg/dL (0.6-1.3); MAGNESIUM - SERUM 2.1 mg/dL (1.8-2.4); PHOSPHOROUS 4.5 mg/dL (2.5-4.9); POTASSIUM - SERUM 4.7 mmol/L (3.5-5.1); PROTEIN - SERUM 6.3 g/dL (6.4-8.2); SODIUM 139 mmol/L (136-145); UREA NITROGEN 9 mg/dL (7-18); eGFR NON AFRICAN AMERICAN 75 mL/min (90-120)
[2019-06-23 06:58] LABS: CALC OSMOLALITY 275 mosm/kg (275-300); GLUCOSE 81 mg/dL (74-106); TROPONIN-I < 0.017 ng/mL (0.000-0.060)
[2019-06-23] MEDS ORDERED: HALDOL DECAN50 MG/ML (07:01)
--- NOTE | 2019-06-23 07:15 | NUR ---
RECEIVED PT IN BED AAOX2 TO SELF AND PLACE RESP UNLABORED SKIN W/D COLOR WNL DENIES ANY NEEDS OR DISCOMFORT AT THIS TIME
[2019-06-23 08:36] VITALS: BP 97/43
[2019-06-23] MEDS ORDERED: CARDIZEM60 MG PO (12:30)
[2019-06-23 12:46] VITALS: BP 123/73
--- NOTE | 2019-06-23 13:37 | NUR ---
REPORT CALLED TO [facility] WITH TOBIN MITCHELL
[2019-06-23] MEDS ORDERED: DEPAKOTE SPRIN125 MG PO (13:47)
--- NOTE | 2019-06-23 13:59 | NUR ---
REVIEWED DISCHARGE INSTRUCTIONS WITH PT AND DAUGHTER BOTH STATES UNDERSTANDING COPY GIVEN DCD SALINE LOCK DCD RT HAND SITE FREE OF REDNESS OR EDEMA LEFT UNIT VIA W/C IN STABLE CONDITION WITH ALL PERSONAL BELONGS
== END 2019-06-23 13:58 ==
LOC: D.ER 11:49 → D.M2 14:25 → OBSVTIME 14:25 → D.M2 06-23 13:58
PROVIDERS: Family Medicine; ADMIT Internal Medicine Nephrology; ATTEND Internal Medicine Nephrology
DX: I47.1 Supraventricular tachycardia (principal); C41.9 Malignant neoplasm of bone and articular cartilage, unspecified; F25.9 Schizoaffective disorder, unspecified; F31.9 Bipolar disorder, unspecified; E78.5 Hyperlipidemia, unspecified; I11.0 Hypertensive heart disease with heart failure; I50.9 Heart failure, unspecified; I45.10 Unspecified right bundle-branch block

== ENCOUNTER 2019-07-06 07:55 | Inpatient (IN) | payer OTHER, MEDICAID ==
[2019-07-06] VITALS (8 sets, daily range): BP systolic 94–124; BP diastolic 57–74; Ht 157.5 cm; Wt 63.6 kg
[~2019-07-06] VITALS: Ht 157.5 cm; Wt 63.6 kg
[~2019-07-06 07:55] MED LIST changes: +APAP325 MG PO; +BACLOFEN10 MG PO; +CARDIZEM60 MG PO; +COREG 3.1253.125 MG PO; +HALDOL DECAN50 MG/ML; +MS CONTIN30 MG PO; +OXYCONTIN10 MG PO; +PRAVACHOL20 MG PO
[2019-07-06 08:25] LABS: CALC OSMOLALITY 272 mosm/kg (275-300); CALCIUM 9.4 mg/dL (8.5-10.1); CARBON DIOXIDE 23.8 mmol/L (21.0-32.0); CHLORIDE - SERUM 101 mmol/L (98-107); CREATININE - SERUM 1.1 mg/dL (0.6-1.3); POTASSIUM - SERUM 3.9 mmol/L (3.5-5.1); SODIUM 135 mmol/L (136-145); UREA NITROGEN 12 mg/dL (7-18); eGFR NON AFRICAN AMERICAN 52 mL/min (90-120)
[2019-07-06 08:27] LABS: APTT 35.2 SECONDS (22.8-39.4); INR 0.98 (0.85-1.17)
[2019-07-06 08:31] LABS: BASOPHILS 0.2 % (0-2); EOSINOPHILS 0.4 % (0-7); HEMATOCRIT 42.4 % (36.0-48.0); HEMOGLOBIN 13.5 g/dL (12-16); IMMATURE GRANULOCYTES 0.2 % (0-5); LYMPHOCYTES 22.7 % (15-50); MCH 27.9 pg (26.0-34.0); MCHC 31.8 g/dL (31.0-37.0); MCV 87.6 fL (80.0-100.0); MONOCYTES 7.6 % (2-11); NEUTROPHILS 68.9 % (40-80); PLATELET COUNT 251 10x3/uL (130-400); RBC 4.84 10x6/uL (4.00-5.40); RDW 15.7 % (11.5-14.5); WBC 9.8 10x3/uL (4.8-10.8)
[2019-07-06 08:40] LABS: GLUCOSE 144 mg/dL (74-106)
[2019-07-06 08:42] LABS: ALKALINE PHOSPHATASE 128 U/L (30-120); ALT (SGPT) 12 U/L (10-68); BILIRUBIN - TOTAL 0.32 mg/dL (0.2-1.3); CKMB 0.2 U/L (0.0-3.6); CREATINE KINASE 41 UL (21-215); TROPONIN-I < 0.017 ng/mL (0.000-0.060)
--- NOTE | 2019-07-06 10:25 | NUR ---
RECEIVED PT FROM ER VIA STRETCHER. PT IS AAO AND UP AD LOTTIE. CALL LIGHT W/I REACH. FAMILY AT BEDSIDE. NO S/S OF DISTRESS NOTED. RR EVEN AND UNLABORED ON 2L 02. PT DENIES ANY NEEDS. QUICKSTART, HISTORY, AND MED REQ COMPLETE. WILL CTM.
--- NOTE | 2019-07-06 10:46 | NUR ---
ASSESSMENT COMPLETE PT IS AAOX4 FORGETFUL AT TIMES VERY EXCITABLE RESP UNLABORED SKIN W/D COLOR WNL PULSE RATE 104 SINUS TACH RT HAND IV PATENT WITH AMIODORONE GTT SITE FREE OF REDNESS OR EDEMA NAD NOTED
--- NOTE | 2019-07-06 19:36 | NUR ---
RECEIVED SITTING UP ON SIDE OF BED. ALERT AND ORIENTED X4. HAS CALLED THIS NURSE TO ROOM 4 TIMES ALREADY SINCE 1899. LT ARM RESERVED D/T MASCETOMY. O2@ 2 LITERS PER N/C. IV TO RT HAND WITH CORDARONE INFUSING. TELEMETRY IN PLACE. DENIES NAY NEEDS AT THIS TIME.
[2019-07-07 00:30] VITALS: BP 129/66
[2019-07-07 04:30] VITALS: BP 132/65
[2019-07-07 05:28] LABS: BASOPHILS 0.2 % (0-2); EOSINOPHILS 0.6 % (0-7); HEMOGLOBIN 11.6 g/dL (12-16); IMMATURE GRANULOCYTES 0.2 % (0-5); MCH 27.8 pg (26.0-34.0); MCHC 32.2 g/dL (31.0-37.0); MCV 86.1 fL (80.0-100.0); MONOCYTES 8.8 % (2-11); NEUTROPHILS 65.2 % (40-80); PLATELET COUNT 261 10x3/uL (130-400); RBC 4.18 10x6/uL (4.00-5.40); RDW 15.5 % (11.5-14.5); WBC 8.6 10x3/uL (4.8-10.8)
[2019-07-07 05:45] LABS: ANION GAP 12.6 mmol/L (8-16); CALCIUM 8.9 mg/dL (8.5-10.1); CARBON DIOXIDE 28.3 mmol/L (21.0-32.0); POTASSIUM - SERUM 3.9 mmol/L (3.5-5.1)
[2019-07-07 08:29] VITALS: BP 129/61
--- NOTE | 2019-07-07 09:13 | NUR ---
AM MEDS GIVEN AT THIS TIME. ALSO GAVE OXYCODONE FOR PAIN LEVEL OF 6/10. PT ON SIDE OF BED, EATING BREAKFAST, A/O X4, RESP EVEN AND UNLABORED ON RA. RT HAND IV INFUSING CORDORONE AT 16.7. PT DENIES ANY OTHER NEEDS AT THIS TIME. CALL LIGHT IN REACH, NAD NOTED, WILL CONTINUE TO MONITOR.
[2019-07-07 13:11] LABS: BILIRUBIN NEGATIVE (NEGATIVE); GLUCOSE NEGATIVE (NEGATIVE); KETONE NEGATIVE (NEGATIVE); NITRITE NEGATIVE (NEGATIVE); UROBILINOGEN NORMAL (NORMAL)
[2019-07-07 13:12] LABS: BACTERIA FEW /hpf (NEGATIVE); RED CELLS - URINE 0-5 /hpf (0-5)
[2019-07-07 13:56] VITALS: BP 126/57
--- NOTE | 2019-07-07 15:58 | NUR ---
PT UP TO CHAIR, DENIES ANY NEEDS AT THIS TIME. CALL LIGHT IN REACH, NAD NOTED, WILL CONTINUE TO MONITOR.
[2019-07-07 18:25] VITALS: BP 119/69
--- NOTE | 2019-07-07 19:58 | NUR ---
INITIAL ROUNDS AND ASSESSMENT COMPLETED. NO DISTRESS. CALL LIGHT IN REACH. CPOC
[2019-07-07 20:30] VITALS: BP 152/77
[2019-07-08 00:30] VITALS: BP 119/56
[2019-07-08 04:30] VITALS: BP 120/60
--- NOTE | 2019-07-08 05:31 | NUR ---
AWAKE AND UP IN ROOM DOING HER ORAL CARE. REQUESTED JUICE AND PAIN MEDS/AM MEDS GIVEN. PT IN VERY GOOD SPIRITS. CPOC.
[2019-07-08 06:12] LABS: BASOPHILS 0.6 % (0-2); EOSINOPHILS 1.4 % (0-7); HEMATOCRIT 34.5 % (36.0-48.0); HEMOGLOBIN 10.8 g/dL (12-16); IMMATURE GRANULOCYTES 0.1 % (0-5); LYMPHOCYTES 27.8 % (15-50); MCHC 31.3 g/dL (31.0-37.0); MCV 86.3 fL (80.0-100.0); MEAN PLATELET VOLUME 9.3 fL (7.4-10.4); MONOCYTES 9.8 % (2-11); NEUTROPHILS 60.3 % (40-80); PLATELET COUNT 242 10x3/uL (130-400); RDW 15.6 % (11.5-14.5); WBC 7.2 10x3/uL (4.8-10.8)
[2019-07-08 07:00] LABS: ANION GAP 14.2 mmol/L (8-16); CALCIUM 8.3 mg/dL (8.5-10.1); CARBON DIOXIDE 27.8 mmol/L (21.0-32.0); CREATININE - SERUM 0.9 mg/dL (0.6-1.3)
[2019-07-08 08:48] VITALS: BP 104/55
--- NOTE | 2019-07-08 08:54 | NUR ---
AM MEDS GIVEN AT THIS TIME. RT HAND IV LOOKING A LITTLE RED AROUND SITE. INFORMED PT THAT IT SHOULD PROBABLY BE CHANGED TO A DIFFERENT SITE. PT REFUSED TO HAVE IV TAKEN OUT STATES " IT'S STILL WORKING I CAN FEEL IT WHEN YOU FLUSH IT. IF IT GOES BAD I WILL LET YOU KNOW". PT DENIES ANY NEEEDS AT THIS TIME. CALL LIGHT IN REACH, NAD NOTED, WILL CONTINUE TO MONITOR.
--- NOTE | 2019-07-08 11:41 | NUR ---
UPDATED PT'S DAUGHTER TREE ON PLAN OF CARE.
[2019-07-08 12:59] VITALS: BP 127/67
[2019-07-08 18:04] VITALS: BP 140/74
[2019-07-08 20:00] VITALS: BP 133/69
--- NOTE | 2019-07-08 20:00 | NUR ---
INITIAL ROUNDS AND ASSESSMENT COMPLETED. NO DISTRESS. NONLABORED RESPIRATIONS. SEE SHIFT ASSESSMENT. CPOC. CALL LIGHT IN REACH.
--- NOTE | 2019-07-08 22:22 | NUR ---
BEDTIME MEDS GIVEN. PT RESTING. IV AMIODARONE INFUSING. CPOC. BEDTIME SNACK PROVIDED.
[2019-07-09] VITALS: BP 112/57
[2019-07-09 04:00] VITALS: BP 118/56
[2019-07-09 06:55] LABS: BASOPHILS 0.4 % (0-2); EOSINOPHILS 2.4 % (0-7); HEMATOCRIT 34.8 % (36.0-48.0); HEMOGLOBIN 10.8 g/dL (12-16); IMMATURE GRANULOCYTES 0.1 % (0-5); LYMPHOCYTES 31.1 % (15-50); MEAN PLATELET VOLUME 9.3 fL (7.4-10.4); MONOCYTES 7.8 % (2-11); NEUTROPHILS 58.2 % (40-80); PLATELET COUNT 259 10x3/uL (130-400); RDW 15.4 % (11.5-14.5); WBC 6.8 10x3/uL (4.8-10.8)
[2019-07-09 07:01] LABS: ANION GAP 14.4 mmol/L (8-16); CALCIUM 8.8 mg/dL (8.5-10.1); CREATININE - SERUM 1.1 mg/dL (0.6-1.3); POTASSIUM - SERUM 3.4 mmol/L (3.5-5.1)
--- NOTE | 2019-07-09 08:27 | NUR ---
PER DR. ROGERS D/Sally AMIODORONE DRIP AND START AMIODORONE 200MG PO DAILY.
[2019-07-09 10:37] VITALS: BP 120/68
[2019-07-09 14:17] VITALS: BP 124/70
--- NOTE | 2019-07-09 19:29 | NUR ---
ASSESSMENT COMPELTE, PT A&O. RESPERATIONS EVEN ON RA. IV TO RIGHT FOREARM SL, SITE CLEAN AND DRY. PT DENIES PAIN OR NEEDS AT THIS TIME, BED LOW, CL IN REACH.
[2019-07-09 20:00] VITALS: BP 153/85
--- NOTE | 2019-07-09 20:35 | NUR ---
IV TO RIGHT FOREARM COVERED SO PT CAN GET UP TO SHOWER. NOTIFIED MT THAT PT WILL BE OFF MONITOR FOR A LITTLE WHILE.
--- NOTE | 2019-07-09 23:28 | NUR ---
RDA AT BED SIDE TO OBTAIN VITALS.
[2019-07-10] VITALS: BP 128/76
[2019-07-10 04:00] VITALS: BP 131/77
--- NOTE | 2019-07-10 05:17 | NUR ---
PT REFUSED TO HAVE AM LABS DRAWN. STATED THAT SHE HAS BEEN "POKED ENOUGH"
--- NOTE | 2019-07-10 06:59 | NUR ---
ASSESSMENT DONE. DENIES NEEDS
--- NOTE | 2019-07-10 09:10 | NUR ---
I have reviewed this patient and I concur with the Shift Assessment completed by the Licensed Practical Nurse today this shift.
[2019-07-10 09:30] VITALS: BP 116/77
[2019-07-10 11:52] VITALS: BP 108/71
[2019-07-10] MEDS ORDERED: PRAVACHOL20 MG PO (14:03)
[2019-07-10] MEDS ORDERED: DOXYCYCLINE HY100 M2 PO (14:05)
[2019-07-10 14:15] LABS: BASOPHILS 0.4 % (0-2); EOSINOPHILS 2.5 % (0-7); HEMATOCRIT 35.2 % (36.0-48.0); IMMATURE GRANULOCYTES 0.4 % (0-5); LYMPHOCYTES 28.8 % (15-50); MCH 27.2 pg (26.0-34.0); MCHC 31.3 g/dL (31.0-37.0); MCV 87.1 fL (80.0-100.0); MEAN PLATELET VOLUME 9.2 fL (7.4-10.4); MONOCYTES 9.6 % (2-11); NEUTROPHILS 58.3 % (40-80); PLATELET COUNT 268 10x3/uL (130-400); RBC 4.04 10x6/uL (4.00-5.40); RDW 15.4 % (11.5-14.5)
[2019-07-10 14:33] LABS: ANION GAP 13.2 mmol/L (8-16); CALCIUM 8.8 mg/dL (8.5-10.1); CARBON DIOXIDE 26.9 mmol/L (21.0-32.0)
[2019-07-10 14:36] LABS: POTASSIUM - SERUM 4.1 mmol/L (3.5-5.1)
--- NOTE | 2019-07-10 15:54 | NUR ---
REPORT CALLED TO RONNI
--- NOTE | 2019-07-10 15:57 | NUR ---
DC TO [facility] PER VAN
--- NOTE | 2019-07-11 07:46 | MORECARE ---
CASE MANAGEMENT DISCHARGE SUMMARY PATIENT: JIMBO WINN UNIT: [id number] ADM DATE: 07/06/19 AGE: 69 : 52 SEX: F ROOM/BED: D.5249 AUTHOR: JAYDON,DOC PHYSICIAN: REFERRING PHYSICIAN: CATARINO GOYAL MD DATE OF SERVICE: 07/11/19 Discharge Plan Patient Name: JIMBO WINN Facility: [facility]:[place] : 1950 Planned Disposition: Inpatient Rehab Anticipated Discharge Date: Discharge Date: 07/10/2019 Expected LOS: 0 Initial Reviewer: [email or web address] Initial Review Date: 07/06/2019 Generated: 07/11/19 8:46 am Comments DCP- Discharge Planning Updated by [email or web address]: Malena Cherry on 07/11/19 6:[address] Patient Name: JIMBO WINN Encounter No: [id number] : 1950 Primary Insurance: [email or web address] Anticipated DC Date: Planned Disposition: Inpatient Rehab External Planned Provider: : Late entry. assessment completed on 07/10/19@0910 DCP : CM met with patient to complete initial dc planning assessment. CM educated patient on the CM role and verbal consent given by patient to complete assessment. CM verified patient's address, phone number, and emergency contact phone numbers. Patient is currently in rehab @ [facility]. At discharge patient plans to return to [facility] and feels this is a safe discharge. MICHELLE form signed by patient for return to [facility] in a rehab bed. Signed form placed in chart and signed form given to patient. Patient denied further known discharge needs at this time. . Transportation provider at discharge will be from [facility]. CM will continue to follow and will assist as needed with dc plans/needs. Patient and family in agreement with discharge plan. Updated orders and requested information faxed to SNF. Patient\family notified of anticipated dc time. SNF phone number and contact information given to patient \family. DC IMM delivered, explained, signed by the patient, and placed in his chart. Signed form also left with patient. Malena Cherry MSN, Rn,CM External Providers [facility] Next Contact Date: Service Request Date: Service Type: Resolution: Reviewer: Comments: Coverage Notice Reviewer: [email or web address] Tawana Malena Dilip Notice Issued Date-Time: 07/10/2019 9:10 Notice Type: IM Discharge Notice Notice Delivered To: Patient Relationship to Patient: Nurse Auditor Name: Delivery Method: HAND - Hand Delivered Thelma Days: Prior Verbal Notification: Recipient Understood Notice: Yes Recipient Signature: Yes Med Rec Note Co-signed by Attending: Coverage Notice Comment: DC IMM delivered, explained, signed by the patient, and placed in his chart. Signed form also left with patient. Patient Name: JIMBO WINN Page [phone] at 0746 All edits/amendments must be made on the electronic document DICTATION DATE: 07/11/1945 FULFILLMENT COORDINATOR: RENAE 07/11/19 0746 RPT#: [id number] DC DATE:07/10/19 STATUS: DIS IN [facility] [address] [place] [address] END OF REPORT
== END 2019-07-10 15:57 | DRG 309 ==
LOC: OBSVTIME → D.ER 07:55 → D.OPS 07:55 → D.ER 09:16 → D.M2 09:16 → OBSVTIME 09:16 → EDSTATUS 11:31 → D.M2 16:13
PROVIDERS: Family Medicine; ADMIT Internal Medicine Nephrology; ATTEND Internal Medicine Nephrology
DX: I47.1 Supraventricular tachycardia (principal); E87.1 Hypo-osmolality and hyponatremia; I42.9 Cardiomyopathy, unspecified; I08.3 Combined rheumatic disorders of mitral, aortic and tricuspid valves; E78.5 Hyperlipidemia, unspecified; I11.0 Hypertensive heart disease with heart failure; I50.9 Heart failure, unspecified; F25.9 Schizoaffective disorder, unspecified; F41.9 Anxiety disorder, unspecified